=== PATIENT | male | born 1950 | race Caucasian/White ===

== ENCOUNTER → 2017-11-13 06:56 | Outpatient (CLI) | payer MEDICARE, OTHER, SELFPAY ==
--- NOTE | 2017-11-13 06:58 | CT_ITS ---
STUDY: CT CHEST WITH CONTRAST REASON FOR EXAM: Male, 67 years old. History of chronic lymphocytic leukemia. RADIATION DOSAGE (If Supplied By Facility): CTDIvol = ( 22.11 ) mGy, DLP = ( 2292.09 ) mGycm TECHNIQUE: Transaxial imaging was performed following intravenous administration of 100 ml of Isovue 300 contrast material. Multiplanar coronal and sagittal images were reformatted. Individualized dose optimization techniques were used for this CT. COMPARISON: Comparison is made with prior examination dated September 27, 2017. FINDINGS: Since prior study, there has been decrease in the left axillary adenopathy. Residual changes persist. Stable benign-appearing right axillary lymph nodes. The lungs are normal. There is no demonstrated pleural abnormality. Normal heart and pericardium. There are multiple small lymph nodes within the mediastinum, which are normal in size and morphology most compatible with reactive lymph hyperplasia. Normal hilar regions. Normal enhanced pulmonary arteries. Normal aorta arch and descending thoracic aorta. There are multi-level degenerative changes of the thoracic spine. Residual adenopathy in the visualized portion of retroperitoneal and peripancreatic area. This is better described on the CT scan of the abdomen. CT/Chest WITH Contrast IMPRESSION: Since prior study, there has been improvement in the number and size of the left axillary lymphadenopathy. Electronically Signed: Micah Caceres MD at 19:49 EST Tel [phone], Service support ,
--- NOTE | 2017-11-13 06:59 | CT_ITS ---
STUDY: CT ABDOMEN AND PELVIS WITH CONTRAST REASON FOR EXAM: Male, 67 years old. The patient has chronic lymphocytic leukemia. The patient is presently receiving chemotherapy. RADIATION DOSAGE (If Supplied By Facility): CTDIvol = ( 22.11 ) mGy, DLP = ( 2292.09 ) mGycm TECHNIQUE: Transaxial images were obtained from the dome of the diaphragm to the symphysis pubis with oral contrast. 100 ml of Isovue 300 contrast was administered. Sagittal and coronal images were reconstructed. Individualized dose optimization techniques were used for this CT. COMPARISON: Comparison is made with prior study dated September 27, 2017. FINDINGS: The visualized lung bases are unremarkable. The visualized portions of the heart are within normal limits. Normal liver. Normal gallbladder and extrahepatic biliary system. Normal spleen. The peripancreatic lymphadenopathy has improved. Residual adenopathy is seen. There is persistent soft tissue density in the root of the mesentery with a haziness within the fat although there has been a moderate degree of improvement of the masses. The previously seen masses in the midabdomen have almost completely resolved. Normal bilateral adrenal glands. Normal right kidney. Accident field mild degree of bilateral perinephric stranding. Normal visualized stomach. Normal small intestine. Normal colon. The appendix is visualized and appears normal. Normal abdominal aorta. Normal inferior vena cava. There is retroperitoneal lymphadenopathy with enlarged nodes greater than 10-15mm in the short axis. There has been moderate degree of decreased size of the retroperitoneal lymphadenopathy. Normal urinary bladder. Normal abdominal wall. The patient is status post bilateral hip replacement. CT/Abdomen/Pelvis WITH Contrast IMPRESSION: Since prior study, there has been a moderate degree of improvement of the retroperitoneal and pelvic lymphadenopathy. The previously seen masses in the mid abdomen have almost completely resolved. Residual mild lymphadenopathy is seen in the root of the mesentery with persistent haziness in the peritoneal fat. Electronically Signed: Micah Caceres MD at 19:44 EST Tel [phone], Service support ,
== END ==
PROVIDERS: Family Provider Nurse Practitioner; PCP Nurse Practitioner; Visit Provider Internal Medicine Medical Oncology
DX: C91.10 Chronic lymphocytic leukemia of B-cell type not having achieved remission (principal)
CPT/HCPCS: 71260; 74177; Q9967

== ENCOUNTER → 2018-01-28 07:27 | Outpatient (CLI) | payer MEDICARE, OTHER, SELFPAY ==
--- NOTE | 2018-01-28 08:00 | PET_ITS ---
EXAMINATION: FDG PET CT INDICATIONS: A 67-year-old male with history of chronic lymphocytic leukemia presenting for restaging examination. COMPARISON EXAMINATION: CT of the chest report dated 11/13/17, CT of the abdomen and pelvis report dated 11/13/17. INDEX LESION SIZE SUV INTERPRETATION Mediastinum, right thoracic perihilum 2.4 (max) Quantitative criteria for viable neoplasm are not fulfilled Bilateral adrenal glands 1.6 Quantitative criteria for viable neoplasm are not fulfilled TECHNIQUE: Following the intravenous administration of 14.0 mCi of F-18 deoxyglucose via the left hand, multiplanar image acquisitions of the neck, chest, abdomen and pelvis to level of mid thigh, obtained at one hour post radiopharmaceutical administration contemporaneously interpreted with the current CT of the neck, chest, abdomen and pelvis to level of mid thigh, dated 01/28/[address] of the chest report dated 11/13/17, CT of the abdomen and pelvis report dated 11/13/17 reveal: SERUM GLUCOSE LEVEL: 85 mg/dl. HEIGHT: 68 inches. WEIGHT: 220 lbs. FINDINGS: 1. There is focal increased glucose concentration observed in the subcarinal mediastinum and right thoracic perihilum generating a calculated maximum standard uptake value of 2.4. Quantitative criteria for centrally located thoracic-viable neoplasm are not fulfilled. 2. Mild enhanced glucose concentration is observed in the bilateral upper abdomen contiguous to the left-right adrenal glands generating a calculated maximum standard uptake value of 1.6. Quantitative criteria for viable adrenal gland neoplasm are not fulfilled. 3. Normal physiologic distribution of the radiopharmaceutical is apparent in the hepatic (3.1) and splenic parenchyma, both renal units, bladder and visualized intestinal tract. There is uniform distribution of the radiopharmaceutical concentration compared on the cerebellar hemispheres and cerebral cortex. Diffuse intestinal tract activity is noted throughout all four quadrants of the abdominal-pelvic retroperitoneum, mesentery consistent with normal physiologic distribution of the radiopharmaceutical. Pertinent CT findings are as follows. CHEST: There are no parenchymal densities-nodules demonstrated in the right-left hemithorax manifesting quantitatively significant increased glucose metabolism. Atherosclerotic calcification is defined in the thoracic aorta without evidence of dilatation, aneurysm formation. Coronary arterial calcification is observed. Bilateral subcentimeter axillary soft tissue densities with fatty hilus formation are non-glucose avid. Scattered mediastinal soft tissue demonstrates no evidence of facilitated glucose metabolism ABDOMEN AND PELVIS: Atherosclerotic calcification is defined in the abdominal aorta without evidence of dilatation, aneurysm formation. Pelvic arterial calcification is observed. Scattered soft tissue densities noted in the abdominal mesenteric fat demonstrate no evidence of facilitated glucose metabolism. Fat-containing bilateral inguinal hernias are noted. Right-left inguinal soft tissue densities are ametabolic. Beam-hardening artifact attributed to the right-left hip prostheses precludes accurate assessment of the lower pelvic CT acquisition. SKELETAL: Degenerative changes defined in the cervical, thoracic and lumbar spine demonstrate no evidence for glucose hypermetabolism. Bilateral hip arthroplasties are defined. PET/PET/CT Tumor Base -Thigh Subs IMPRESSION: 1. NEGATIVE EXAMINATION. There is no definitive quantitative scintigraphic evidence of recurrent-viable neoplasm. 2. Increased glucose concentration identified in the mediastinum and right thoracic perihilum does not fulfill quantitative criteria for viable neoplasm. (John et al, Journal of Clinical Oncology 16:2142, 1998). 3. Facilitated glucose concentration observed in the bilateral adrenal glands does not fulfill quantitative criteria for viable neoplasm. (Chata and Avier, Journal of Nuclear Medicine 42:151 P 2002. Carrie, Journal of Nuclear Medicine 45:1340, 2004). Electronic Signature Kaden Wade D.O. Electronically Signed: Kaden Wade DO at 22:57 EDT Tel , Service support ,
== END ==
PROVIDERS: Visit Provider Internal Medicine Medical Oncology
DX: C91.10 Chronic lymphocytic leukemia of B-cell type not having achieved remission (principal)
CPT/HCPCS: 78815; A9552; A4216

== ENCOUNTER → 2018-04-12 16:33 | Outpatient (CLI) | payer MEDICARE, OTHER, SELFPAY ==
--- NOTE | 2018-04-12 09:00 | COLBX_PTH ---
PATIENT: NAKUL WHATLEY LOC: SP U#:[id number] AGE/SX: 75/M ROOM: RE04/12/[address]: Dr. Gagan Najera MD : 1950 BED: DIS: SPEC #: [id number] RECD: 04/12/18 15:36 STATUS: CAMPOS WOODY #: [id number] KAMI: 04/12/18 09:[address]: Gagan Najera DEPT: SURGICAL PATHOLOGY RECD BY: Courtney Mccormick ENTERED: 04/15/18 11:27 SP TYPE: COLON BX OT DR: CARLA Tissues: Ileum, NOS Procedures: Surgery Specimen Level IV HEADER OPERATION: Colonoscopy PRE-OP DIAGNOSIS: Screening / polyp TISSUE SUBMITTED: Polyp ? ileocecal valve MICROSCOPIC DIAGNOSIS Polyp ileocecal valve, biopsy: Fragments of hyperplastic polyp. SJ:kristy 04/16/18 MICROSCOPIC DESCRIPTION Slides are reviewed. GROSS DESCRIPTION Received in fixative is one container labeled with the patient's name and designated polyp ileocecal valve. The specimen consists of multiple irregular fragments of light cardoso soft tissue that in aggregate measure 0.8 x 0.5 x 0.1 cm. The specimen is totally submitted in one cassette. / SJ:kristy 04/15/18 TC:1 CPT: 86520
== END ==
PROVIDERS: Visit Provider Internal Medicine Gastroenterology
DX: Z13.9 Encounter for screening, unspecified (principal); K63.5 Polyp of colon
CPT/HCPCS: 88305

== ENCOUNTER → 2019-08-06 07:48 | Outpatient (CLI) | payer MEDICARE, OTHER, SELFPAY ==
[2019-07-23 11:07] VITALS: BMI 31.9
--- NOTE | 2019-08-06 07:50 | ECHOD_ITS ---
Reason For Study: Arrhythmia Procedure This was a 2D Doppler, Color Flow transthoracic echocardiogram. Exam performed in department. Left Ventricle Normal LV size. Left ventricular systolic function is normal. The estimated ejection fraction is 60 %. Stage 1 diastolic dysfunction. No regional wall motion abnormalities noted. Right Ventricle Normal RV size. Normal systolic function. Atria Normal left atrium. Normal right atrium. Mitral Valve Normal mitral valve. Tricuspid Valve Normal tricuspid valve. Aortic Valve Trisinus/trileaflet aortic valve. Trivial aortic valve insufficiency. Pulmonic Valve Normal pulmonic valve. Great Vessels Normal aortic root. The pulmonary artery is normal size. Normal inferior vena cava. Pericardium/Pleural No pericardial effusion. MMode/2D Measurements & Calculations LVIDd: 5.2 cm IVSd: 1.1 cm Ao root diam: 3.6 cm LVIDs: 2.7 cm LVPWd: 0.84 cm RVDd: 3.3 cm FS: 46.9 % LAV(MOD-bp): 47.2 ml EDV(MOD-sp4): 95.7 ml SV(MOD-sp4): 68.1 ml LAV(MOD-bp) Indexed: 22.7 ml/m2 ESV(MOD-sp4): 27.6 ml LAV(MOD-sp2): 51.0 ml EF(MOD-sp4): 71.1 % LAV(MOD-sp4): 43.1 ml LA dimension(2D): 3.3 cm LA A4 area: 16.7 cm2 RA A4 area: 13.3 cm2 Doppler Measurements & Calculations MV E max kavon: 70.7 cm/sec Lat Peak E' Kavon: 7.7 cm/sec Med Peak E' Kavon: 5.9 cm/sec MV A max kavon: 91.2 cm/sec E/E' lat: 9.2 E/E' med: 11.9 MV E/A: 0.78 Ao V2 max: 119.1 cm/sec LV V1 max: 114.3 cm/sec PA V2 max: 88.2 cm/sec Ao max P.7 mmHg LV V1 max P.2 mmHg Interpretation Summary Normal LV size. Left ventricular systolic function is normal. The estimated ejection fraction is 60 %. Stage 1 diastolic dysfunction. Structurally normal valves. Ordering Physician: Clyde Sky Referring Physician: Katie Simon Performed By: Ashli Mckeon RDCS
== END ==
PROVIDERS: Family Provider Nurse Practitioner; PCP Nurse Practitioner; Referring Provider Internal Medicine Cardiovascular Disease; Visit Provider Internal Medicine Cardiovascular Disease
DX: R55 Syncope and collapse (principal)
CPT/HCPCS: 93225; 93226; 93306

== ENCOUNTER → 2019-09-01 06:52 | Outpatient (CLI) | payer MEDICARE, OTHER, SELFPAY ==
[2018-12-10 08:28] VITALS: BMI 30.6
[2019-07-23 11:07] VITALS: BMI 31.9
--- NOTE | 2019-09-01 06:54 | CT_ITS ---
ACR Level 3 findings have been noted. An addendum which confirms receipt of the report will follow. STUDY: CT ABDOMEN CHEST AND PELVIS WITH CONTRAST REASON FOR EXAM: Male, 69 years old. Follow-up CLL. No new pain or problems. TECHNIQUE: Transaxial images were obtained from the thoracic inlet to the symphysis pubis without oral contrast. IV 100mL Isovue-370 was administered. Sagittal and coronal images were reconstructed. Individualized dose optimization techniques were used for this CT. COMPARISON: PET scan 01/28/2018. FINDINGS: CHEST: Mediastinum, lymph nodes: Mild increase in size and number of mediastinal lymph nodes, with mildly prominent paratracheal, AP window, and subcarinal lymph nodes slightly increased compared to the previous study. Mild increase in size and number of bilateral axillary lymph nodes. Reference subcarinal lymph node series 2 image 51 3.7 x 1.0 cm TRV X AP, increased from 1.8 x 0.9 cm. Heart and great vessels: Heart size normal. No dissection or aneurysm of the thoracic aorta. Coronary artery atherosclerosis. Lungs, pleura: No pneumonia, edema, or acute abnormality in the lungs. No pleural effusion. No pneumothorax. Osseous: No fracture or acute osseous abnormality. Degenerative changes right shoulder. Chest wall: No concerning findings. Abdomen/pelvis: Retroperitoneal and peritoneal spaces, lymph nodes: Definite interval increase in superior mesenteric and para-aortic/retroperitoneal lymphadenopathy. The mesenteric lymph nodes have increased in size and number. Reference a lymph node to the left of midline adjacent to the SMA at the level of the L2-3 disc (series 3 image 51) 2.5 x 2.5 cm TRV X AP today increased from 1.2 x 1.2 cm. Reference retroperitoneal lymph node a conglomerate mass to the left of the abdominal aorta at the level of L3, measured on series 3 image 68, 4.6 x 4.3 cm TRV X AP increased from 2.4 x 1.6 cm on the previous study. Liver: No concerning lesions. Gallbladder and biliary tree: No visible gallstones. No pericholecystic inflammation. No biliary ductal dilation. Pancreas: No pancreatic lesions or inflammation. Spleen: Normal size, no splenic lesions. Adrenal glands: No concerning masses. Kidneys and ureters: No hydronephrosis or renal stones. No concerning masses. No ureteral dilation. Bowel: Normal appendix. No obstruction or inflammation of the bowel. Urinary bladder: Unremarkable as visualized. Partially obscured by streak artifact from the bilateral hip arthroplasties. Reproductive:Normal size prostate. Vascular: No abdominal aortic aneurysm. Patent portal and mesenteric veins. Minimal atherosclerosis. Osseous: No acute osseous abnormality. Prominent facet degeneration lower lumbar spine. Bilateral total hip arthroplasties. Abdominal and pelvic wall: No concerning findings. CT/Abdomen/Pelvis W IV Cont ONLY IMPRESSION: Moderate to severe worsening of superior mesenteric and retroperitoneal lymphadenopathy. Slight worsening of mediastinal and bilateral axillary adenopathy. Electronically Signed: Jose Daigle, at 17:31 EST Tel , Service support ,
[2019-09-01 07:05] LABS: CREATININE FINGERSTICK 1.1 mg/dL (0.70-1.30); EGFR FINGERSTICK > 60.0000 mL/min (>60)
== END ==
PROVIDERS: Family Provider Nurse Practitioner; PCP Nurse Practitioner; Referring Provider Internal Medicine Medical Oncology; Visit Provider Internal Medicine Medical Oncology
DX: C91.10 Chronic lymphocytic leukemia of B-cell type not having achieved remission (principal)
CPT/HCPCS: 71260; 74177; Q9967

== ENCOUNTER → 2019-09-25 09:26 | Outpatient (CLI) | payer MEDICARE, OTHER, SELFPAY ==
[2019-09-04 08:24] VITALS: BMI 33.0
--- NOTE | 2019-09-25 09:31 | RAD_ITS ---
HISTORY: COUGH ADDITIONAL HISTORY: None provided. COMPARISON: 04/27/2016 TECHNIQUE: Frontal and lateral chest radiographs. Number of images including paperwork: 2 FINDINGS: LUNGS AND PLEURA: Left lower lobe consolidation with partial obscuration of the left hemidiaphragm. No sizable pleural effusion. Right hemidiaphragm elevation appears similar. CARDIAC SILHOUETTE: Stable. MEDIASTINUM AND FABIAN: Stable. UPPER ABDOMEN: Unremarkable. SKELETON AND SOFT TISSUES: No acute findings. Degenerative changes. OTHER DEVICES AND HARDWARE: Bilateral shoulder prostheses partially visualized. RAD/Chest PA and Lateral IMPRESSION: Left lower lobe infiltrate concerning for pneumonia. at 2213 Reported and signed by: Shelly Hedrick MD Electronically Signed: Shelly Hedrick MD at 22:12 EST Tel , Service support ,
[2019-09-25 10:00] LABS: Hematocrit 33.2 % (40-54); Hemoglobin 10.4 g/dL (13.0-16.5); Mean Corp Hgb Conc 31.3 g/dL (32-36); Mean Corpuscular Hgb 29.1 pg (27.0-32.0); Mean Corpuscular Volume 92.7 fL (80-94); Mean Platelet Vol. 8.9 fl (6.2-12.0); Platelet Count 314 K/mm3 (150-450); RBC Distribution Width CV 13.7 % (11.6-14.6); RBC Distribution Width SD 46.7 fl (35.1-43.9); Red Blood Count 3.58 M/mm3 (4.6-6.2); White Blood Count 15.4 K/mm3 (4.4-11.0)
[2019-09-25 10:17] LABS: ALB/GLOB Ratio 1.2 RATIO (0.9-2.4); AST(SGOT) 46 U/L (15-37); Alanine Aminotransfer ALT/SGPT 83 U/L (16-61); Albumin, Serum 3.2 g/dL (3.2-5.0); Alkaline Phosphatase 235 U/L (45-117); Anion Gap 5 (5-15); BUN 23 mg/dL (7-18); Calcium,Total 8.7 mg/dL (8.5-10.1); Chloride 109 mmol/L (98-107); Creatinine, Serum 0.92 mg/dL (0.70-1.30); EST Glomerular Filtration Rate 87 mL/min (>60); Est Glom Filt Rate - Afr Amer 106 mL/min (>60); Globulin 2.7 g/dL (2.2-4.2); Glucose 117 mg/dL (74-106); Potassium 4.6 mmol/L (3.5-5.1); Protein, Total 5.9 g/dL (6.4-8.2); Sodium Level 142 mmol/L (136-145)
[2019-09-25 10:22] LABS: D-Dimer Quantitative (DVT/PE) 3.17 FEU/ug/m (0.27-0.49)
== END ==
PROVIDERS: Referring Provider Nurse Practitioner Gerontology; Visit Provider Nurse Practitioner Gerontology
DX: R05 Cough (principal); R50.9 Fever, unspecified
CPT/HCPCS: 71046; 80053; 85027; 85379

== ENCOUNTER → 2019-09-25 10:52 | Outpatient (CLI) | payer MEDICARE, OTHER, SELFPAY ==
[2019-09-04 08:24] VITALS: BMI 33.0
--- NOTE | 2019-09-25 10:59 | CT_ITS ---
STUDY: CTA CHEST REASON FOR EXAM: Male, 69 years old. ELEV DDIMER RADIATION DOSAGE (If Supplied By Facility): CTDIvol = ( 15.00 ) mGy, DLP = ( 526.85 ) mGycm TECHNIQUE: The examination was performed with the intravenous administration of Isovue 370 100. Post-processing of the angiographic images was performed, with multiplanar reformation and 3D reconstruction. Individualized dose optimization techniques were used for this CT. COMPARISON: 09/01/2019 FINDINGS: Normal enhancement of the main pulmonary artery and right and left pulmonary arteries. Normal enhancement of the bilateral peripheral pulmonary arteries. There is no demonstrated pulmonary embolism. Normal thoracic aorta and visualized great vessels. There is no demonstrated aortic dissection. Normal heart and pericardium. Normal mediastinum. Normal hilar regions. Normal visualized trachea and bronchi. The lungs are well expanded. Dense alveolar density in the lower left lung consistent with left lower lobe pneumonia. Normal pleura. Normal chest wall structures. Normal osseous structures. Prominent retroperitoneal mesenteric lymph nodes worrisome for metastatic disease or lymphoma. CT/CTA Chest W/WO Contrast IMPRESSION: 1. Normal CTA chest examination, without a demonstrated pulmonary embolism or arterial dissection. 2. Left lower lobe pneumonia. 3. Retroperitoneal mesenteric lymph nodes worrisome for metastatic disease or lymphoma. Electronically Signed: Kaden Souza MD at 12:04 EST Tel , Service support ,
== END ==
PROVIDERS: Family Provider Nurse Practitioner; PCP Nurse Practitioner; Referring Provider Nurse Practitioner Gerontology; Visit Provider Nurse Practitioner Gerontology
DX: R79.89 Other specified abnormal findings of blood chemistry (principal); R05 Cough; R50.9 Fever, unspecified
CPT/HCPCS: 71046; 71275; 80053; 85027; 85379; Q9967

== ENCOUNTER → 2019-11-13 09:25 | Outpatient (CLI) | payer MEDICARE, OTHER, SELFPAY ==
[2019-10-02 11:15] VITALS: BMI 31.9
--- NOTE | 2019-11-13 09:29 | RAD_ITS ---
HISTORY: COUGH EXAM: XR Chest 2 Views: COMPARISON: Most recent comparison chest x-rays September 25, 2019. A CT scan of the chest is also available from that same day. FINDINGS: # of images incl. paperwork: 2 Bilateral shoulder arthroplasties are unchanged. Minimal left lower lobe airspace disease persists. The severity of this disease is less than that of the previous study The right lung is clear Heart is not enlarged. No acute osseous pathology perceived. Pulmonary vascularity is distinct. No effusions. RAD/Chest PA and Lateral IMPRESSION: Less left lower lobe airspace disease, possibly resolving pneumonia.. at 0602 Reported and signed by: Isaac Tolentino MD Electronically Signed: Isaac Tolentino MD at 6:00 EST Tel , Service support ,
== END ==
PROVIDERS: PCP Nurse Practitioner; Referring Provider Nurse Practitioner Gerontology; Visit Provider Nurse Practitioner Gerontology
DX: R05 Cough (principal)
CPT/HCPCS: 71046

== ENCOUNTER → 2020-02-26 | Outpatient (CLI) | payer MEDICARE, OTHER, SELFPAY ==
[2020-02-11 09:00] VITALS: BMI 33.4
== END | disposition home or self-care (01) ==
LOC: LABSPEC 15:54
PROVIDERS: PCP Nurse Practitioner; Visit Provider Dermatology
DX: L03.012 Cellulitis of left finger (principal); L60.0 Ingrowing nail
CPT/HCPCS: 87070; 87077; 87186; 87205

== ENCOUNTER 2020-02-28 13:34 | Emergency (ER) | payer MEDICARE, OTHER, SELFPAY ==
[2020-02-11 09:00] VITALS: BMI 33.4
[2020-02-28 13:35] VITALS: BP 154/88; PULSE 77; RESP 16; TEMP 36.3; O2SAT 96; BMI 32.8
[2020-02-28 13:50] VITALS: BP 146/84; PULSE 79; RESP 14; O2SAT 97
--- NOTE | 2020-02-28 13:53 | ED.VIS.UPPEX ---
History of Present Illness Chief Complaint: Cellulitis Informant: Patient Occurred: Days - 3 days Mechanism/Context: Puncture Wound Onset: Days - 3 days Context: Gradual Onset Timing: Continuous Quality of Pain: Throbbing Location: left middle finger Current Severity: Mild Maximum Severity: Mild Worsened by: nothing Relieved by: nothing Associated Symptoms: Negative for: Parasthesia, Weakness, Loss of Funtion Narrative: 69-year-old male with a history of CLL presents for wound check. He had a paronychia drained by his circular saw operator 3 days ago on his left middle finger. He states it seems more red to him and he presents for evaluation. No fevers or drainage. He is not having any pain. Denies numbness or tingling. He is right-hand dominant. He is not on blood thinners. He is currently on Keflex. He has been compliant. Tetanus Immunization: Unknown Prior similar symptoms: No Recent Illness/Hospitalization: No Past Medical History - Allergies and Home Meds Allergies/Adverse Reactions: Allergies naproxen Adverse Reaction (Intermediate, Verified 02/28/20 13:35) Upset Stomach Primary Care Physician: Vinod Lyman MD [STAFF PHYSICIAN] - 03/01/20 11:45 am Katie Simon NP-C [Primary Care Provider] - Prior records reviewed: Yes Past Medical History: - - CLL Surgical History: - - bilateral hip replacements, shoulder replacement Smoking Status: Never smoker Review of Systems All systems negative except as indicated General: Denies: Chills, Fever, Sweats Eyes: Denies: Visual changes - bilaterally, Diplopia ENT: Denies: Rhinorrhea, Sore throat Cardiovascular: Denies: Chest pain, Palpitations Respiratory: Denies: Dyspnea, Cough, Dyspnea on exertion Gastrointestinal: Denies: Abdominal pain, Nausea, Vomiting, Diarrhea, Melena, Hematochezia Genitourinary: Denies: Dysuria, Hematuria, Frequency Musculoskeletal: Denies: Back pain, Extremity Pain Skin: Reports: Wounds. Denies: Rash, Abscess, Abrasions Neurological: Denies: Headache, Weakness, Numbness Physical Exam Vital Signs/Narrative: Vital Signs Temp Pulse Resp BP Pulse Ox 02/28/20 13:50 79 14 146/84 H 97 02/28/20 13:35 97.3 F L 77 16 154/88 H 96 Inital Vital Signs reviewed: Yes General: Well nourished, Well developed Head: Normocephalic, Atraumatic Eyes: Perrl, EOMI ENT: No Trauma, Moist Mucous Membranes Neck: Nontender, Full ROM Cardiovascular: Regular rate, Regular rhythm, No murmurs Respiratory: No distress, CTA bilaterally, Chest nontender Abdomen: Soft, Nontender, Nondistended, Normal bowel sounds Back: Nontender Skin: Normal color, No rash Neurological: Alert, Oriented x3, Cranial nerves II-XII grossly intact, Normal Strength, Normal Sensation Psychological: Normal affect, Normal Mood Diagnostic/Tx/Re-eval Impressions Hand X-Ray 02/28/20 14:00 IMPRESSION: Possible foreign body on the dorsal aspect of the distal phalanx of the third finger. Electronically Signed: Raymond Fermin MD at 14:35 EDT Tel , Service support , 02/28/20 14:00 Xray Hand [Hand Min 3 Views] [RAD] Stat - Medical Decision Making Patient's exam shows some mild cellulitis surrounding his left middle finger nail but there is no lymphatic streaking or signs of flexor tenosynovitis. X-ray was obtained. Showed no bony involvement but possible foreign body. Repeat evaluation patient has no signs on exam of foreign body. We spoke with his circular saw operator Dr Lyman who is been managing this wound who asked us to add linezolid and Diflucan to his Keflex and he will see him in the office on Sunday. ED Disposition - Plan for ED Patient: Disposition: Home or Assisted Living Diagnosis: CLL (chronic lymphoid leukemia) with failed remission, Cellulitis of finger of left hand Instructions: ED FINGERNAIL INFECTION Prescriptions: Fluconazole [Diflucan] 400 mg PO DAILY #7 tab Transmission Status: Sent to [id number] Linezolid [Zyvox] 600 mg PO Q12H #14 tab Transmission Status: Sent to [id number] Referrals: Vinod Lyman MD [STAFF PHYSICIAN] - 03/01/20 11:45 am Katie Simon NP-C [Primary Care Provider] -
--- NOTE | 2020-02-28 14:00 | RAD_ITS ---
STUDY: X-RAY - LEFT HAND REASON FOR EXAM: Male, 69 years old. Pulled A Piece Of Nail Off Of His Left Middle Finger 1 1/2 Weeks Ago And Now Swollen, Red And Painful. TECHNIQUE: 3 view(s) of the hand. COMPARISON: None. FINDINGS: Normal radiocarpal articulation. Normal distal radioulnar joint. Normal visualized carpal bones. Normal carpal articulations Normal carpometacarpal articulation of the thumb. Normal second through fifth carpometacarpal joints. Normal metacarpi. Normal metacarpophalangeal joint of the thumb. Normal interphalangeal joint of the thumb. Normal proximal and distal phalanges of the thumb. Normal metacarpophalangeal joints of the second through fifth fingers. Normal proximal and distal interphalangeal joints of the second through fifth fingers. Normal phalanges of the second through fifth fingers. There is a small density in the region of the nailbed on the dorsal aspect of the distal phalanx of the third finger which could represent foreign body. RAD/Hand Min 3 Views IMPRESSION: Possible foreign body on the dorsal aspect of the distal phalanx of the third finger. Electronically Signed: Raymond Fermin MD at 14:35 EDT Tel , Service support ,
--- NOTE | 2020-02-28 14:55 | ED.DCSUM_ITS ---
- ER Visit Summary Date of Service: 02/28/20 Chief Complaint: [Redness and swelling to left middle finger] History of Present Illness: The patient is a 69 M [into the emergency department with redness and swelling to left middle finger that has had for about 3 weeks. Patient states that he initially pulled a hangnail from the edge of the nail that triggered all this issue. Patient's been treated for paronychia with his international marketing specialist initially was on doxycycline and then recently switched over to Keflex. Patient has not responded to this therapy. Patient had a culture sent recently of the drainage which grew out alphahemolytic strep as well as coag negative staph. There is concern about enterococcus also. Patient denies any fevers. Patient was seen by Dr. Lyman the international marketing specialist and also had partial resection of the nail. Patient has history of CLL and receives oral chemotherapy for that.] Physical Examination: [HEENT-PERRLA, EOMI. Cranial nerves II through XII grossly intact. TMs clear. Mucous membranes moist. No adenopathy. Cardiovascular-regular rate and rhythm without murmur or ectopy Lungs-clear to auscultation, chest wall stable without crepitus or subcu emphysema Abdomen-normoactive bowel sounds, soft, nontender, no rebound or rigidity, no peritoneal signs. Extremities-intact ?4, normal range of motion, normal pulses, atraumatic. Left middle finger-patient has have erythema around the lateral edge of the nail and at the base of the nail. Small amount of yellowish type drainage expressed from the nail edge when compressed. No discrete abscess noted. Neurovascular intact distally. There is some discoloration that is brownish to the skin and apparently the international marketing specialist used some silver nitrate to the area.] Test Results: [X-Rays of the left hand obtained showed no evidence of osteomyelitis however there is question of possible foreign body noted to the lateral edge of the nail.] Emergency Department Course and Treatment: [Patient was given Diflucan in the emergency department as well as Linozolid. I discussed case with patient's international marketing specialist Dr. Lyman and he made the recommendations on antibiotics. Patient will be seen in the office in 2 days for a repeat evaluation.] Treatment Plan: [Patient will be treated with Keflex,Linozolid, and Diflucan. Patient will follow-up with his international marketing specialist in 2 days. ] Disposition: [Discharged home in stable condition] Impression: [Paronychia] This note was generated with [employer] dictation software. It may contain incorrect words, spelling, and punctuation that were not noted in review of the chart prior to signing ED Disposition - Plan for ED Patient: Referrals: Katie Simon, GENERAL EDUCATION INSTRUCTOR-C [Primary Care Provider] -
--- NOTE | 2020-02-28 15:00 | ED.DEP ---
ED Disposition - Plan for ED Patient: Instructions: ED FINGERNAIL INFECTION Prescriptions: Fluconazole [Diflucan] 400 mg PO DAILY #7 tab Transmission Status: Pending to [id number] Linezolid [Zyvox] 600 mg PO Q12H #14 tab Transmission Status: Pending to [id number] Referrals: Katie Simon NP-C [Primary Care Provider] - Vinod Lyman MD [STAFF PHYSICIAN] - 03/01/20 11:45 am
[2020-02-28 15:24] VITALS: BP 127/70; PULSE 69; RESP 16; O2SAT 97
[2020-02-28] MEDS: Fluconazole 100 MG Tablet 400 MG PO (15:26)
[2020-02-28] MEDS: Linezolid 600 MG Tablet PO (15:26)
== END 2020-02-28 15:31 | disposition home or self-care (01) ==
PROVIDERS: Emergency Provider Physician Assistant Medical; PCP Nurse Practitioner
DX: C91.10 Chronic lymphocytic leukemia of B-cell type not having achieved remission (principal); L03.012 Cellulitis of left finger
CPT/HCPCS: 73130; 99283

== ENCOUNTER → 2020-03-30 | Outpatient (CLI) | payer MEDICARE, OTHER, SELFPAY ==
[2020-03-10 09:08] VITALS: BMI 33.7
== END | disposition home or self-care (01) ==
LOC: LABSPEC 12:52
PROVIDERS: PCP Nurse Practitioner; Referring Provider Dermatology; Visit Provider Dermatology
DX: L03.012 Cellulitis of left finger (principal); L60.0 Ingrowing nail; L98.0 Pyogenic granuloma; L53.8 Other specified erythematous conditions; R20.8 Other disturbances of skin sensation
CPT/HCPCS: 87070; 87077; 87186; 87205

== ENCOUNTER → 2020-04-05 07:45 | Outpatient (CLI) | payer MEDICARE, OTHER, SELFPAY ==
[2020-03-10 09:08] VITALS: BMI 33.7
--- NOTE | 2020-04-05 07:46 | CT_ITS ---
STUDY: CT ABDOMEN AND PELVIS WITH CONTRAST REASON FOR EXAM: Male, 69 years old. ABDOMINAL ADENOPATHY,CLL RADIATION DOSAGE (If Supplied By Facility): CTDIvol = ( 20.63 ) mGy, DLP = ( 1607.62 ) mGycm TECHNIQUE: Transaxial images were obtained from the dome of the diaphragm to the symphysis pubis with oral contrast. Oral and amp;amp; IV Readi-CAT and amp;amp; 100mL Isovue-300 was administered. Sagittal and coronal images were reconstructed. Individualized dose optimization techniques were used for this CT. COMPARISON: Comparison is made with prior examination dated September 01, 2019. FINDINGS: Stable minimal increased linear markings at the lung bases. Coronary artery calcification. There is decreased attenuation of the liver consistent with steatosis. Normal gallbladder and extrahepatic biliary system. Normal spleen. Normal pancreas. The previously seen lymph nodes in the mesenteric fat at the root of the mesentery as well as the peripancreatic lymphadenopathy at all decreased in size. Normal bilateral adrenal glands. Normal right kidney. Normal left kidney. Normal visualized stomach. Normal small intestine. Normal colon. The appendix is visualized and appears normal. Normal abdominal aorta. Normal inferior vena cava. There is retroperitoneal lymphadenopathy with enlarged nodes greater than 10-15mm in the short axis. There has been improvement as compared to prior study. Normal urinary bladder. Normal abdominal wall. Status post bilateral hip replacements. Stable mild degenerative changes of the lumbar spine. CT/Abdomen/Pelvis WITH Contrast IMPRESSION: Improvement in the retroperitoneal and mesenteric lymphadenopathy as compared to the prior study. Electronically Signed: Micah Caceres, at 11:11 EDT , Service support ,
== END ==
PROVIDERS: PCP Nurse Practitioner; Referring Provider Internal Medicine Medical Oncology; Visit Provider Internal Medicine Medical Oncology
DX: C91.10 Chronic lymphocytic leukemia of B-cell type not having achieved remission (principal); R59.0 Localized enlarged lymph nodes
CPT/HCPCS: 74177; Q9967

== ENCOUNTER → 2020-06-28 06:51 | Outpatient (CLI) | payer MEDICARE, OTHER, SELFPAY ==
[2020-06-02 08:22] VITALS: BMI 34.4
--- NOTE | 2020-06-28 06:51 | CT_ITS ---
STUDY: CT ABDOMEN AND PELVIS WITH CONTRAST REASON FOR EXAM: Male, 70 years old. CLL CHECK UP, HAD CHEMO 2017, NOW ON ORAL TREATMENT, SURG-pyloric stenosis as an , cyst removed from anterior chest, left shoulder replacement, bilateral hip replacements RADIATION DOSAGE (If Supplied By Facility): CTDIvol = ( 20.14 ) mGy, DLP = ( 1725.60 ) mGycm TECHNIQUE: Transaxial images were obtained from the dome of the diaphragm to the symphysis pubis with oral contrast. 100 mL ISOVUE-300 was administered. Sagittal and coronal images were reconstructed. Individualized dose optimization techniques were used for this CT. COMPARISON: 04/05/2020 FINDINGS: The visualized lung bases are unremarkable. The visualized portions of the heart are within normal limits. Normal liver. Normal gallbladder and extrahepatic biliary system. Normal spleen. Normal pancreas. Normal bilateral adrenal glands. Normal right kidney. Normal left kidney. Normal visualized stomach. Normal small intestine. Normal colon. The appendix is visualized and appears normal. Normal abdominal aorta. Normal inferior vena cava. Retroperitoneal mesenteric adenopathy has decreased in size since the prior study. For instance, the largest single lymph node in the retroperitoneum on image 644 measures 1.6 x 2.4 cm (previously measured 2.0 x 3.1 cm). Persistent induration/stranding of the mesenteric root although decreased in conspicuity since the prior study. Normal urinary bladder. Normal abdominal wall. Bilateral hip replacements cause moderate spray artifact. CT/Abdomen/Pelvis WITH Contrast IMPRESSION: Since 04/05/2020, favorable change. Decreased retroperitoneal mesenteric adenopathy. Electronically Signed: Brody Keys MD (Brooks) at 9:23 EDT , Service support ,
== END ==
PROVIDERS: PCP Nurse Practitioner; Referring Provider Internal Medicine Medical Oncology; Visit Provider Internal Medicine Medical Oncology
DX: C91.91 Lymphoid leukemia, unspecified, in remission (principal)
CPT/HCPCS: 74177; Q9967

== ENCOUNTER → 2020-08-18 | Outpatient (CLI) | payer MEDICARE, OTHER, SELFPAY ==
[2020-07-28 08:26] VITALS: BMI 34.0
== END | disposition home or self-care (01) ==
LOC: LABSPEC 10:43
PROVIDERS: Referring Provider Dermatology; Visit Provider Dermatology
DX: L98.0 Pyogenic granuloma (principal); M71.331 Other bursal cyst, right wrist
CPT/HCPCS: 87070; 87077; 87186; 87205

== ENCOUNTER → 2020-08-27 | Outpatient (CLI) | payer MEDICARE, OTHER, SELFPAY ==
[2020-08-25 08:33] VITALS: BMI 34.9
== END | disposition home or self-care (01) ==
LOC: LABSPEC 10:54
PROVIDERS: Referring Provider Dermatology; Visit Provider Dermatology
DX: L98.0 Pyogenic granuloma (principal); L60.0 Ingrowing nail
CPT/HCPCS: 87070; 87205

== ENCOUNTER → 2020-11-10 06:49 | Outpatient (CLI) | payer MEDICARE, OTHER, SELFPAY ==
[2020-10-20 08:29] VITALS: BMI 35.6
--- NOTE | 2020-11-10 06:52 | CT_ITS ---
STUDY: CT CHEST WITH CONTRAST REASON FOR EXAM: Male, 70 years old. Restaging leukemia 7 YEARS AGO WITH CHEMOTHERAPY RADIATION DOSAGE (If Supplied By Facility): CTDIvol = ( 20.14 ) mGy, DLP = ( 1725.60 ) mGycm TECHNIQUE: Transaxial imaging was performed following intravenous administration of IV 100mL Isovue-300. Multiplanar coronal and sagittal images were reformatted. Individualized dose optimization techniques were used for this CT. COMPARISON: Comparison is made with prior study dated 09/01/2019. FINDINGS: The bilateral axillary lymph nodes have decreased in size as compared to prior study. The largest lymph node measures 9 mm and is in the right axillary region. Stable minimal increased markings in the lower lobes suggestive of scarring. There is no demonstrated pleural abnormality. Normal heart and pericardium. There are multiple small lymph nodes within the mediastinum, which are normal in size and morphology most compatible with reactive lymph hyperplasia. Normal hilar regions. Normal enhanced pulmonary arteries. Normal aorta arch and descending thoracic aorta. There are multi-level degenerative changes of the thoracic spine. Mild residual increased markings in the root of the mesentery. The previously seen adenopathy has markedly improved. CT/Chest WITH Contrast IMPRESSION: Interval decrease in size of the bilateral axillary lymph nodes as well as the mediastinal lymph nodes. Stable mild increased markings at the lung bases suggestive of scarring. Electronically Signed: Micah Caceres MD at 8:35 EST , Service support ,
--- NOTE | 2020-11-10 06:52 | CT_ITS ---
STUDY: CT ABDOMEN AND PELVIS WITH CONTRAST REASON FOR EXAM: Male, 70 years old. LEUKEMIA F/U WITH CHEMO 7 YEARS AGO RADIATION DOSAGE (If Supplied By Facility): CTDIvol = ( 20.14 ) mGy, DLP = ( 1725.60 ) mGycm TECHNIQUE: Transaxial images were obtained from the dome of the diaphragm to the symphysis pubis without oral contrast. IV 100mL Isovue-300 was administered. Sagittal and coronal images were reconstructed. Individualized dose optimization techniques were used for this CT. COMPARISON: Comparison is made with prior study dated 06/28/2020. FINDINGS: Minimal increased interstitial markings at the lung bases suggest some mild basilar scarring. Coronary artery calcification. Normal liver. Normal gallbladder and extrahepatic biliary system. Normal spleen. Normal pancreas. Normal bilateral adrenal glands. Normal right kidney. Normal left kidney. There is evidence of increased markings in the mesenteric fat at the root of the mesentery. Once again, there are multiple rounded nodular densities within the root of the mesenteric fat in keeping with adenopathy. These have decreased slightly in size as compared to prior study. Normal visualized stomach. Normal small intestine. Normal colon. The appendix is visualized and appears normal. Normal abdominal aorta. Normal inferior vena cava. There is retroperitoneal lymphadenopathy with enlarged nodes greater than 10-15mm in the short axis. These have decreased in size as compared to prior study. Normal urinary bladder. Normal abdominal wall. There are diffuse degenerative changes of the visualized lumbar spine. There is evidence of bilateral total hip replacements. CT/Abdomen/Pelvis W IV Cont ONLY IMPRESSION: Slight decrease in the retroperitoneal and mesenteric lymphadenopathy as compared to prior study. Electronically Signed: Micah Caceres MD at 8:38 EST , Service support ,
== END ==
PROVIDERS: PCP Nurse Practitioner; Referring Provider Internal Medicine Medical Oncology; Visit Provider Internal Medicine Medical Oncology
DX: C91.10 Chronic lymphocytic leukemia of B-cell type not having achieved remission (principal)
CPT/HCPCS: 71260; 74177; Q9967

== ENCOUNTER 2020-12-07 12:44 | Outpatient (RCR) | payer MEDICARE, OTHER, SELFPAY ==
[2020-11-17 08:34] VITALS: BMI 36.0
[2020-12-28] MEDS: COVID-19 VACC, MRNA(PFIZER)/PF 30 MCG/0.3 ML SYRINGE IM (08:07)
== END 2021-03-01 23:59 ==
LOC: IMMUN 12:44
PROVIDERS: PCP Nurse Practitioner; Referring Provider Family Medicine; Visit Provider Family Medicine
DX: Z23 Encounter for immunization (principal)
CPT/HCPCS: 0001A; 0002A; 91300

== ENCOUNTER → 2021-01-06 06:26 | Outpatient (CLI) | payer MEDICARE, OTHER, SELFPAY ==
[2020-12-15 09:02] VITALS: BMI 34.3
--- NOTE | 2021-01-06 06:40 | MRI_ITS ---
STUDY: MRI LEFT KNEE REASON FOR EXAM: Posterior left knee pain, hyperextended knee 4 weeks ago. TECHNIQUE: Standardized fat and water weighted pulse sequences were obtained in all 3 orthogonal planes. COMPARISON: None. FINDINGS: There is a flap tear of the posterior horn of the medial meniscus with a small displaced fragment anterior to the root of the posterior horn of the medial meniscus (T2 coronal image 17; T2 sagittal image 10; proton-density sagittal images 17, 18). Normal hyaline cartilage of the medial femorotibial compartment. There is subchondral bone edema of the medial tibial plateau (T2 coronal images 15-21), a stress phenomenon. There is a mild sprain of the superficial fibers of the medial collateral ligament (T2 coronal image 21). Normal distal semimembranosus, gracilis and semitendinosus tendons. Normal lateral meniscus. Normal hyaline cartilage of the lateral femorotibial compartment. Normal lateral femoral condyle and tibial plateau. Normal proximal tibiofibular articulation. There is a mild sprain of the proximal lateral collateral ligament (T2 coronal image 15). Normal popliteus tendon. Normal biceps femoris tendon. Normal anterior cruciate ligament (ACL). There is a mild sprain of the proximal posterior cruciate ligament (T2 sagittal image 11). Normal congruent patellofemoral articulation. There is chondral tearing of the medial and lateral patellar facets (T2 axial images 8-10). Normal medial and lateral patellar retinaculum. Normal visualized quadriceps tendon. Normal patellar tendon. Normal Hoffa''s fat pad. There is a [id number] sized joint effusion. There is mild edema in the anterior subcutis adipose space. The otherwise visualized osseous structures are unremarkable. MRI/Lower Ext Joint Only (Routine) IMPRESSION: Medial meniscal tear. Subchondral bone edema of the medial tibial plateau, a stress phenomenon. Mild sprain of the posterior cruciate ligament. Mild sprains of the medial collateral and lateral collateral ligaments. Chondral tears of the patella. Joint effusion. Electronically Signed: Stefano Alvarez MD at 8:26 EDT Tel , Service support ,
== END ==
PROVIDERS: PCP Nurse Practitioner; Referring Provider Physician Assistant; Visit Provider Physician Assistant
DX: S83.8X2A Sprain of other specified parts of left knee, initial encounter (principal); X58.XXXA Exposure to other specified factors, initial encounter; Y93.9 Activity, unspecified; Y92.9 Unspecified place or not applicable; Y99.9 Unspecified external cause status
CPT/HCPCS: 73721

== ENCOUNTER → 2021-02-01 09:40 | Outpatient (CLI) | payer MEDICARE, OTHER, SELFPAY ==
[2021-01-20 08:38] VITALS: BMI 35.3
[2021-02-01 10:19] LABS: Hematocrit 44.8 % (40-54); Mean Corp Hgb Conc 31.3 g/dL (32-36); Mean Corpuscular Hgb 29.3 pg (27.0-32.0); Mean Corpuscular Volume 93.7 fL (80-94); Mean Platelet Vol. 10.5 fl (6.2-12.0); Platelet Count 261 K/mm3 (150-450); RBC Distribution Width CV 12.9 % (11.6-14.6); RBC Distribution Width SD 44.5 fl (35.1-43.9); Red Blood Count 4.78 M/mm3 (4.6-6.2); White Blood Count 6.1 K/mm3 (4.4-11.0)
[2021-02-01 10:47] LABS: Anion Gap 0 (5-15); BUN 13 mg/dL (7-18); Calcium,Total 8.8 mg/dL (8.5-10.1); Chloride 107 mmol/L (98-107); EST Glomerular Filtration Rate 79 mL/min (>60); Est Glom Filt Rate - Afr Amer 95 mL/min (>60); Glucose 85 mg/dL (74-106); Potassium 4.9 mmol/L (3.5-5.1); Sodium Level 140 mmol/L (136-145)
== END ==
PROVIDERS: PCP Nurse Practitioner; Referring Provider Physician Assistant; Visit Provider Physician Assistant
DX: Z01.818 Encounter for other preprocedural examination (principal)
CPT/HCPCS: 36415; 80048; 85027

== ENCOUNTER → 2021-02-07 10:41 | Outpatient (CLI) | payer MEDICARE, OTHER, SELFPAY ==
[2021-01-20 08:38] VITALS: BMI 35.3
--- NOTE | 2021-02-07 10:48 | EKG12_ITS ---
Test Reason : PREOP Blood Pressure : / mmHG Vent. Rate : 080 BPM Atrial Rate : 080 BPM P-R Int : 150 ms QRS Dur : 084 ms QT Int : 368 ms P-R-T Axes : 045 005 -39 degrees QTc Int : 424 ms Normal sinus rhythm ST & T wave abnormality, consider inferior ischemia ST & T wave abnormality, consider anterolateral ischemia Abnormal ECG Confirmed by MOHINI MATA MD ([id number]), web content editor SERENE LOJA ([id number]) on 02/08/2021 9:38:43 AM Referred By: [place] Confirmed By:MOHINI MATA MD
== END ==
PROVIDERS: PCP Nurse Practitioner; Referring Provider Physician Assistant; Visit Provider Physician Assistant
DX: Z01.818 Encounter for other preprocedural examination (principal); Z01.810 Encounter for preprocedural cardiovascular examination
CPT/HCPCS: 93005

== ENCOUNTER → 2021-02-14 12:54 | Outpatient (CLI) | payer MEDICARE, OTHER, SELFPAY ==
[2021-02-10 08:06] VITALS: BMI 35.7
--- NOTE | 2021-02-14 12:56 | ECHOCS_ITS ---
Reason For Study: Abn EKG Procedure This was a 2D Doppler, Color Flow transthoracic echocardiogram. Contrast injection was performed. Exam performed in department. Left Ventricle Normal LV size. Mild concentric left ventricular hypertrophy. Left ventricular systolic function is normal. The estimated ejection fraction is 60 %. Stage 1 diastolic dysfunction. Right Ventricle Normal RV size. Normal systolic function. Atria Normal left atrium. Normal right atrium. Mitral Valve Normal mitral valve. Tricuspid Valve Normal tricuspid valve. Aortic Valve The aortic valve is not well visualized. Pulmonic Valve Normal pulmonic valve. Great Vessels Normal aortic root. The pulmonary artery is normal size. Normal inferior vena cava. Pericardium/Pleural No pericardial effusion. Medication Diluted definity 2ml given slow IV push to enhance endocardial definition. MMode/2D Measurements & Calculations LVIDd: 4.5 cm IVSd: 1.4 cm Ao root diam: 3.4 cm LVIDs: 2.8 cm LVPWd: 1.2 cm RVDd: 3.0 cm FS: 37.1 % LAV(MOD-bp): 39.2 ml LVAd ap4: 22.1 cm2 SV(MOD-sp4): 39.6 ml LAV(MOD-bp) Indexed: 17.9 ml/m2 LVLd ap4: 7.3 cm LAV(MOD-sp2): 41.6 ml EDV(MOD-sp4): 55.5 ml LAV(MOD-sp4): 33.6 ml EDV(sp4-el): 56.6 ml LVAs ap4: 10.6 cm2 LVLs ap4: 6.1 cm ESV(MOD-sp4): 16.0 ml ESV(sp4-el): 15.9 ml EF(MOD-sp4): 71.3 % EF(sp4-el): 72.0 % SV(sp4-el): 40.8 ml LA A4 area: 14.6 cm2 LA dimension(2D): 4.0 cm RA A4 area: 10.6 cm2 Doppler Measurements & Calculations MV E max kavon: 50.6 cm/sec Lat Peak E' Kavon: 6.8 cm/sec Med Peak E' Kavon: 4.5 cm/sec MV A max kavon: 91.0 cm/sec E/E' lat: 7.5 E/E' med: 11.4 MV E/A: 0.56 Ao V2 max: 131.0 cm/sec LV V1 max: 123.0 cm/sec PA V2 max: 97.1 cm/sec Ao max P.9 mmHg LV V1 max P.1 mmHg Ao V2 mean: 95.8 cm/sec Ao mean P.0 mmHg Ao V2 VTI: 25.3 cm ECHO/Echo Complete W/ Contrast Interpretation Summary Normal LV size. Left ventricular systolic function is normal. The estimated ejection fraction is 60 %. Stage 1 diastolic dysfunction. Mild concentric left ventricular hypertrophy. Contrast injection was performed. Ordering Physician: Clyde Sky Referring Physician: Katie Simon Performed By: Anny Freeman, SUSIE, RVT
== END ==
PROVIDERS: PCP Nurse Practitioner; Referring Provider Internal Medicine Cardiovascular Disease; Visit Provider Internal Medicine Cardiovascular Disease
DX: Z01.810 Encounter for preprocedural cardiovascular examination (principal); R94.31 Abnormal electrocardiogram [ECG] [EKG]
CPT/HCPCS: 93306; Q9957; A4216; C8929; J3490

== ENCOUNTER 2021-04-30 23:46 | Emergency (ER) | payer MEDICARE, OTHER, SELFPAY ==
[2021-04-07 09:01] VITALS: BMI 35.6
[2021-04-30 23:46] VITALS: BP 146/83; PULSE 75; RESP 17; TEMP 36.7; O2SAT 95; BMI 36.3
[2021-05-01] VITALS (9 sets, daily range): BP systolic 114–165; BP diastolic 67–76; PULSE 67–91; RESP 14–20; TEMP 36.3; O2SAT 91–99
--- NOTE | 2021-05-01 00:07 | RAD_ITS ---
STUDY: X-RAY CHEST REASON FOR EXAM: Male, 70 years old. chest pain TECHNIQUE: Single AP portable view of the chest. COMPARISON: None. FINDINGS: The lungs are underexpanded. There is no demonstrated pleural abnormality. Normal size heart. Normal mediastinum and minerva. Normal visualized pulmonary arteries. Normal visualized aortic arch and descending thoracic aorta. Normal visualized thoracic spine. Bilateral shoulder arthroplasties are noted. There is no demonstrated abnormality of the visualized soft tissue structures of the upper abdomen. RAD/Chest 1 View (Portable) IMPRESSION: Degenerative changes, as described above. No demonstrated acute cardiopulmonary process. Electronically Signed: Lenin Paz MD at 1:58 EDT Tel , Service support ,
--- NOTE | 2021-05-01 00:08 | ED.VIS.CHEST ---
HPI History of Present Illness Chief Complaint: Chest Pain Informant: patient and spouse/S.O. Narrative Narrative: Patient presents with chest pain. He states that when he ate dinner this evening he had a little indigestion. He then took some Tums. It seemed to calm down. But now he has what he describes as a feeling like he needs to belch in the middle of his chest. It is middle sternal. It does radiate to the upper back base of the neck area. There may be some mild shortness of breath but no cough. No nausea vomiting or diaphoresis. No abdominal pain. He has not been lightheaded or presyncopal. Nothing really makes his better or worse. He has not had this before although he has had some indigestion he states this feels a little bit different. No recent travel surgery immobilization personal or family history of DVT or PE. He had a mild knee surgery recently. He has had prior shoulder replacements but is not having pain in that area. He states he did have some soreness in his left shoulder earlier in the evening but he did not have any other symptoms with it. Those symptoms are now gone. He has never been a smoker. He does have high cholesterol but no diabetes high or high blood pressure. Parents had heart disease in their late 60s to early 70s but not earlier. He does have a history of CLL. [facility] Medical History Chronic lymphocytic leukemia Chronic lymphocytic leukemia in remission Cyst of thyroid Epidermal inclusion cyst Hives Hyperlipidemia Ingrown nail Obesity Sleep apnea Vitamin D deficiency Home Medications cetirizine 10 mg PO DAILY 12/15/20 [History Last Taken Unknown] diphenhydramine HCl 25 mg PO DAILY 12/15/20 [History Last Taken Unknown] pramipexole 0.125 mg tablet 0.125 mg PO DAILY PRN 02/10/21 [History Last Taken Unknown] ibrutinib 420 mg tablet 280 mg PO DAILY tab 03/10/21 [History Last Taken Unknown] pravastatin 20 mg PO DAILY 05/01/21 [History Last Taken Unknown] Allergy/AdvReac Type Severity Reaction Status Date / Time naproxen AdvReac Intermediate Upset Verified 04/30/21 23:53 Stomach Family History Father Cancer Prostate cancer Mother Diabetes Mother Arthritis Mother Heart disease Surgical History History of bilateral hip replacements History of shoulder replacement History of thumb surgery Social History Smoking Status: Never smoker ROS ROS ED Constitutional Constitutional ED: Denies chills, fever(s) or sweats Eyes Eyes: Denies blurry vision or change in vision ENT ENT ED: Denies sore throat Cardiovascular Cardiovascular: Reports as per HPI and chest pain; Denies palpitations or racing heartbeat Respiratory/Chest Respiratory/Chest: Reports other Details: Possible very mild shortness of breath but not notable. ; Denies dyspnea Gastrointestinal Gastrointestinal: Denies abdominal pain, nausea or vomiting Genitourinary Genitourinary ED: Denies dysuria or hematuria Musculoskeletal Musculoskeletal: Reports back pain and neck pain; Denies arthralgias Integumentary Denies rash Neurologic Neurologic: Denies headache(s), paresthesias or weakness Psychiatric Psychiatric: Denies depression Endocrine Endocrinology: Denies polydipsia or polyuria Hematologic/Lymphatic Hematologic/Lymphatic: Denies easy bleeding or easy bruising EXAM Physical Exam Const Vital Signs: 04/30/21 23:46 04/30/21 23:49 05/01/21 00:07 Temperature 98.1 F Temperature Source Temporal Pulse Rate 75 Respiratory Rate 17 Respiratory Effort Normal Non-Labored Respiratory Pattern Normal Blood Pressure 146/83 H Blood Pressure Mean 104 Pulse Ox 95 Oxygen Delivery Method Room Air Room Air 05/01/21 00:38 05/01/21 00:45 05/01/21 00:46 Temperature Temperature Source Pulse Rate 90 90 91 Respiratory Rate 16 Respiratory Effort Respiratory Pattern Blood Pressure 165/76 H 145/72 H 145/72 H Blood Pressure Mean 96 Pulse Ox 98 Oxygen Delivery Method 05/01/21 00:56 05/01/21 01:00 05/01/21 02:27 Temperature Temperature Source Pulse Rate 85 86 85 Respiratory Rate 18 20 H Respiratory Effort Respiratory Pattern Blood Pressure 140/68 H 124/67 H 133/70 H Blood Pressure Mean 86 91 Pulse Ox 99 93 Oxygen Delivery Method Room Air Room Air 05/01/21 03:30 Temperature Temperature Source Pulse Rate 74 Respiratory Rate 14 Respiratory Effort Respiratory Pattern Blood Pressure 116/68 Blood Pressure Mean 84 Pulse Ox 91 Oxygen Delivery Method Room Air Positive well nourished and well developed General Appearance ED: well developed HEENT Reports moist mucous membranes normocephalic and atraumatic Eyes General Eye ED: Negative for pale conjunctiva Neck no JVD Chest Wall inspection of chest normal and palpation of chest normal Resp normal respiratory effort and clear to auscultation bilaterally Effort and Inspection: Negative for respiratory distress Cardio regular rate and regular rhythm Peripheral Pulses: radial pulses present and posterior tibial pulses present GI normal to inspection, nondistended, normoactive bowel sounds, soft to palpation, non-tender and non-distended Back/Spine no CVA tenderness Extremity normal to inspection Neuro Sensorium / Orientation: awake and alert Psych mental status grossly normal Skin no rashes or lesions noted Heart Score History: Moderately Suspicious ECG: Nonspecific Repolarization Age: >/= 65 years Risk Factors: 1 or 2 Risk Factors Troponin: </= Normal Limit Score: 5 MDM MDM MDM Narrative Medical decision making narrative: Blood work in including CBC shows no marked abnormalities. There are nonspecific elevation and decrease of white count and hemoglobin respectively. Glucose is minimally elevated at 123. Troponin is negative. With the patient's history of CLL, and his meniscus surgery just about 3 months ago, we did do a CT scan of his chest. This took some hours to get done and read due to some challenges of the night. But it is negative for any sign of acute process. I have hospitalist on page to discuss admission. He does have a heart score of 5. He thinks his last stress test was 10 or 12 years ago. He is feeling much better when I checked him. He was actually resting quietly. Lab Data Attestation: I reviewed the patient's lab results. Labs: Laboratory Results - last 24 hr 04/30/21 04/30/21 23:55 23:55 WBC 13.1 H RBC 4.32 L Hgb 12.5 L Hct 41.9 MCV 97.0 H MCH 28.9 MCHC 29.8 L RDW Std Deviation 49.1 H RDW Coeff of Rodney 13.7 Plt Count 278 MPV 10.5 Immature Gran % (Auto) 0.600 Neut % (Auto) 76.2 H Lymph % (Auto) 13.1 L [place] % (Auto) 7.2 Eos % (Auto) 2.5 Baso % (Auto) 0.4 Absolute Neuts (auto) 10.0 H Absolute Lymphs (auto) 1.71 Nucleated RBC % 0 Sodium 143 Potassium 4.1 Chloride 109 H Carbon Dioxide 30.0 Anion Gap 4 L BUN 22 H Creatinine 1.02 Estim Creat Clear Calc 67.06 Est GFR (MDRD) Af Amer 93 Est GFR (MDRD) Non-Af 77 BUN/Creatinine Ratio 21.6 H Glucose 123 H Calcium 8.6 Troponin I High Sens 7.1 Radiography Diagnostic Testing: Radiology Impression Chest X-Ray 05/01/21 00:07 IMPRESSION: Degenerative changes, as described above. No demonstrated acute cardiopulmonary process. Electronically Signed: Lenin Paz MD at 1:58 EDT Tel , Service support , Chest CTA 05/01/21 01:26 IMPRESSION: No demonstrated pulmonary embolism or arterial dissection. Electronically Signed: Lenin Paz MD at 4:32 EDT Tel , Service support , EKG Initial EKG: Comments: EKG done for chest pain read by me shows normal sinus rhythm with a rate of 68. There is some diffuse nonspecific baseline motion and nonspecific flattening. No acute ST elevation or depression. MD interval, QRS duration and QTC are normal. Discharge Plan Dx/Rx/DC Orders Clinical Impression: Chest pain Disposition Disposition: Acute Care [facility]
[2021-05-01] MEDS: Aspirin 81 MG TAB.CHEW 324 MG PO (00:37)
[2021-05-01] MEDS: Nitroglycerin SL (ED/IMG/CATH) 0.4 MG TABLET SL ×3 (00:38→00:56)
[2021-05-01 00:47] LABS: Absolute Lymphocyte Count 1.71 X10^3/uL (0.83-4.51); Basophil# 0.05 X10^3/uL; Basophil% 0.4 % (0-1); Eosinophil# 0.33 X10^3/uL; Eosinophils% 2.5 % (0-5); Hematocrit 41.9 % (40-54); Hemoglobin 12.5 g/dL (13.0-16.5); Lymphocyte # 1.71 X10^3/ul (0.83-4.51); Lymphocyte % 13.1 % (19-41); Mean Corp Hgb Conc 29.8 g/dL (32-36); Mean Corpuscular Hgb 28.9 pg (27.0-32.0); Mean Platelet Vol. 10.5 fl (6.2-12.0); Monocyte# 0.94 X10^3/uL; Monocyte% 7.2 % (0-10); NRBC Flagged by Analyzer 0 % (0-5); Neutrophil # 9.95 X10^3/uL (2.7-7.7); Neutrophil % 76.2 % (47-70); Platelet Count 278 K/mm3 (150-450); RBC Distribution Width CV 13.7 % (11.6-14.6); RBC Distribution Width SD 49.1 fl (35.1-43.9); Red Blood Count 4.32 M/mm3 (4.6-6.2); White Blood Count 13.1 K/mm3 (4.4-11.0)
[2021-05-01 00:53] LABS: Anion Gap 4 (5-15); BUN 22 mg/dL (7-18); BUN/Creat Ratio 21.6 RATIO (10-20); Calcium,Total 8.6 mg/dL (8.5-10.1); Chloride 109 mmol/L (98-107); Creatinine, Serum 1.02 mg/dL (0.70-1.30); EST Glomerular Filtration Rate 77 mL/min (>60); Est Glom Filt Rate - Afr Amer 93 mL/min (>60); Estimated Creatinine Clearance 67.06 ml/min; Glucose 123 mg/dL (74-106); Potassium 4.1 mmol/L (3.5-5.1); Sodium Level 143 mmol/L (136-145); Troponin-I HS 7.1 pg/mL (3.0-78.5)
--- NOTE | 2021-05-01 01:03 | ED.RN ---
tylenol given for nitro headache. order not crossing over to mar
[2021-05-01] MEDS: Acetaminophen 325 MG Tablet 650 MG PO (01:14)
--- NOTE | 2021-05-01 01:26 | CT_ITS ---
STUDY: CTA CHEST REASON FOR EXAM: Male, 70 years old. chest pain RADIATION DOSAGE (If Supplied By Facility): CTDIvol = ( 13.78 ) mGy, DLP = ( 510.34 ) mGycm TECHNIQUE: The examination was performed with the intravenous administration of IV 100mL Isovue-370. Post-processing of the angiographic images was performed, with multiplanar reformation and 3D reconstruction. Individualized dose optimization techniques were used for this CT. COMPARISON: None. FINDINGS: Normal enhancement of the main pulmonary artery and right and left pulmonary arteries. Normal enhancement of the bilateral peripheral pulmonary arteries. There is no demonstrated pulmonary embolism. Normal thoracic aorta and visualized great vessels. There is no demonstrated aortic dissection. Normal heart and pericardium. Normal mediastinum. Normal hilar regions. Normal visualized trachea and bronchi. There is dependent atelectasis in the lung bases. Normal pulmonary parenchyma. Normal pleura. Normal chest wall structures. There are degenerative changes of thoracic spine. Normal visualized upper abdomen. CT/CTA Chest W/WO Contrast IMPRESSION: No demonstrated pulmonary embolism or arterial dissection. Electronically Signed: Lenin Paz MD at 4:32 EDT Tel , Service support ,
--- NOTE | 2021-05-01 04:53 | PCM.HP.STD ---
HPI - General General Date of Admission: 05/01/21 Date of Service: 05/01/21 Chief Complaint: Chest pain HPI Narrative NAKUL WHATLEY, is a 70 M who presents [facility] Medical History Chronic lymphocytic leukemia Chronic lymphocytic leukemia in remission Cyst of thyroid Epidermal inclusion cyst Hives Hyperlipidemia Ingrown nail Obesity Sleep apnea Vitamin D deficiency Home Medications cetirizine 10 mg PO DAILY 12/15/20 [History Last Taken Unknown] diphenhydramine HCl 25 mg PO DAILY 12/15/20 [History Last Taken Unknown] pramipexole 0.125 mg tablet 0.125 mg PO DAILY PRN 02/10/21 [History Last Taken Unknown] ibrutinib 420 mg tablet 280 mg PO DAILY tab 03/10/21 [History Last Taken Unknown] pravastatin 20 mg PO DAILY 05/01/21 [History Last Taken Unknown] Allergy/AdvReac Type Severity Reaction Status Date / Time naproxen AdvReac Intermediate Upset Verified 04/30/21 23:53 Stomach Family History Father Cancer Prostate cancer Mother Diabetes Mother Arthritis Mother Heart disease Surgical History History of bilateral hip replacements History of shoulder replacement History of thumb surgery Social History Smoking Status: Never smoker ROS ROS Narrative Constitutional: Reports: Malaise, Weakness, Fatigue. Denies: Anorexia, Chills, Fever, Night Sweats, Weight Change Eyes: Denies: Blurred vision, Cataracts, Conjunctivae Inflammation, Pain, Redness, Vision Change HEENT: Denies: Difficulty Hearing, Difficulty Swallowing, Head Aches, Hearing Changes, Sinus Congestion, Sinus Drainage Cardiovascular: Denies: Chest Pain, Orthopnea, Palpitations Respiratory: Denies: Cough, Shortness of breath at rest, Sputum production Gastrointestinal: Denies: Abdominal Pain, Nausea, Vomiting Genitourinary: Denies: Dysuria Musculoskeletal: Denies: Joint Pain, Joint stiffness, Joint swelling, Joint Tenderness Skin: Denies: Rash, Wounds Neurological: Denies: Numbness, Tingling, Focal weakness Vital Signs Vital Signs Vital Signs: 04/30/21 23:46 04/30/21 23:49 05/01/21 00:07 Temperature 98.1 F Temperature Source Temporal Pulse Rate 75 Respiratory Rate 17 Respiratory Effort Normal Non-Labored Respiratory Pattern Normal Blood Pressure 146/83 H Blood Pressure Mean 104 Pulse Ox 95 Oxygen Delivery Method Room Air Room Air 05/01/21 00:38 05/01/21 00:45 05/01/21 00:46 Temperature Temperature Source Pulse Rate 90 90 91 Respiratory Rate 16 Respiratory Effort Respiratory Pattern Blood Pressure 165/76 H 145/72 H 145/72 H Blood Pressure Mean 96 Pulse Ox 98 Oxygen Delivery Method 05/01/21 00:56 05/01/21 01:00 05/01/21 02:27 Temperature Temperature Source Pulse Rate 85 86 85 Respiratory Rate 18 20 H Respiratory Effort Respiratory Pattern Blood Pressure 140/68 H 124/67 H 133/70 H Blood Pressure Mean 86 91 Pulse Ox 99 93 Oxygen Delivery Method Room Air Room Air 05/01/21 03:30 Temperature Temperature Source Pulse Rate 74 Respiratory Rate 14 Respiratory Effort Respiratory Pattern Blood Pressure 116/68 Blood Pressure Mean 84 Pulse Ox 91 Oxygen Delivery Method Room Air Weight Weight: 108.4 kg Body Mass Index (BMI) 36.3 Physical Exam Narrative Physical exam: General: Alert, Oriented x3, Cooperative, No apparent distress, Well developed HEENT: Atraumatic Oral: Moist Mucosa Neck: Supple Lungs: Clear to auscultation Cardiovascular: HS I+II, regular, no murmurs Abdomen: Bowel Sounds Present, Soft, Non Tender Extremities: No edema Skin: No rashes, No breakdown Neurological: Grossly intact Psych/Mental Status: Appropriate Results Lab / Micro Data Result Diagrams: 04/30/21 23:55 04/30/21 23:55 Labs: Laboratory Results - last 24 hr 04/30/21 23:55: WBC 13.1 H, RBC 4.32 L, Hgb 12.5 L, Hct 41.9, MCV 97.0 H, MCH 28.9, MCHC 29.8 L, RDW Std Deviation 49.1 H, RDW Coeff of Rodney 13.7, Plt Count 278, MPV 10.5, Immature Gran % (Auto) 0.600, Neut % (Auto) 76.2 H, Lymph % (Auto) 13.1 L, Moore % (Auto) 7.2, Eos % (Auto) 2.5, Baso % (Auto) 0.4, Absolute Neuts (auto) 10.0 H, Absolute Lymphs (auto) 1.71, Nucleated RBC % 0 04/30/21 23:55: Sodium 143, Potassium 4.1, Chloride 109 H, Carbon Dioxide 30.0, Anion Gap 4 L, BUN 22 H, Creatinine 1.02, Estim Creat Clear Calc 67.06, Est GFR (MDRD) Af Amer 93, Est GFR (MDRD) Non-Af 77, BUN/Creatinine Ratio 21.6 H, Glucose 123 H, Calcium 8.6, Troponin I High Sens 7.1 Radiology Impression Chest X-Ray 05/01/21 00:07 IMPRESSION: Degenerative changes, as described above. No demonstrated acute cardiopulmonary process. Electronically Signed: Lenin Paz MD at 1:58 EDT Tel , Service support , Chest CTA 05/01/21 01:26 IMPRESSION: No demonstrated pulmonary embolism or arterial dissection. Electronically Signed: Lenin Paz MD at 4:32 EDT Tel , Service support , Assessment & Plan Assessment/Plan (1) Chest pain: Charges/Coding Visit Charges OBSV E&M: 06422 Initial observation care L3
[2021-05-01 06:07] LABS: Troponin-I HS 9.5 pg/mL (3.0-78.5)
== END 2021-05-01 06:44 | disposition left against medical advice (07) ==
LOC: ED 05-01 04:47 → PCU 05-01 06:17
PROVIDERS: Emergency Provider Emergency Medicine; PCP Nurse Practitioner
DX: R07.9 Chest pain, unspecified (principal); E78.00 Pure hypercholesterolemia, unspecified; E04.1 Nontoxic single thyroid nodule; E78.5 Hyperlipidemia, unspecified; E55.9 Vitamin D deficiency, unspecified; G47.30 Sleep apnea, unspecified; E66.9 Obesity, unspecified; Z79.899 Other long term (current) drug therapy; Z85.6 Personal history of leukemia; Z96.643 Presence of artificial hip joint, bilateral; Z96.619 Presence of unspecified artificial shoulder joint
CPT/HCPCS: 71045; 71275; 80048; 84484; 85025; 93005; 99285; Q9967; A4216

== ENCOUNTER → 2021-05-16 07:48 | Outpatient (CLI) | payer MEDICARE, OTHER, SELFPAY ==
[2021-04-07 09:01] VITALS: BMI 35.6
--- NOTE | 2021-05-16 07:50 | CT_ITS ---
STUDY: CT CHEST, ABDOMEN T PELVIS WITH CONTRAST REASON FOR EXAM: Male, 71 years old. ASSESS RESPONSE TO TREATMENT. IV CONTRAST . Patient has a history of CLL. RADIATION DOSAGE (If Supplied By Facility): CTDIvol = ( 25.61 ) mGy, DLP = ( 2360.33 ) mGycm TECHNIQUE: Transaxial imaging was performed following intravenous administration of IV 100mL Isovue-300. Individualized dose optimization techniques were used for this CT. COMPARISON: Comparison is made with prior examination dated 06/10/2021 and 05/01/2021. FINDINGS: CHEST Mild degree of increased linear markings at the lung bases suggestive of scarring. There is no demonstrated pleural abnormality. There are calcifications of the coronary arteries. There are multiple small lymph nodes within the mediastinum, which are normal in size and morphology most compatible with reactive lymph hyperplasia. Normal hilar regions. Normal unenhanced pulmonary arteries. Normal aorta arch and descending thoracic aorta. There are multi-level degenerative changes of the thoracic spine. There is no demonstrated abnormality of the visualized upper abdomen. ABDOMEN The visualized lung bases are unremarkable. The visualized portions of the heart are within normal limits. Normal liver. Normal gallbladder and extrahepatic biliary system. Normal spleen. Normal pancreas. Normal bilateral adrenal glands. Normal right kidney. Normal left kidney. Normal visualized stomach. Normal small intestine. Normal colon. The appendix is visualized and appears normal. Normal abdominal aorta. Normal inferior vena cava. There is borderline retroperitoneal lymphadenopathy with enlarged nodes no greater than 10mm in the short axis diameter. Once again, mild degree of increased markings in the mesenteric fat in the root of the mesentery with the multiple small lymph nodes seen within the root of the mesentery. The largest measures 1.2 cm. Normal abdominal wall. There are degenerative changes of the visualized lumbar spine. PELVIS Normal urinary bladder. The patient is status post bilateral hip replacement. CT/CT Chest, Abd, Pel w/Contrast IMPRESSION: Stable examination. Electronically Signed: Micah Caceres MD at 10:24 EDT , Service support ,
== END ==
PROVIDERS: PCP Nurse Practitioner; Referring Provider Internal Medicine Medical Oncology; Visit Provider Internal Medicine Medical Oncology
DX: C91.90 Lymphoid leukemia, unspecified not having achieved remission (principal)
CPT/HCPCS: 71260; 74177; Q9967; A4216

== ENCOUNTER 2021-12-12 15:34 | Outpatient (CLI) | payer MEDICARE, OTHER, SELFPAY | END 2021-12-12 23:59 | disposition home or self-care (01) | LOC: LABSPEC 15:35 | PROVIDERS: PCP Nurse Practitioner; Visit Provider Otolaryngology | DX: J32.9 Chronic sinusitis, unspecified (principal) | CPT/HCPCS: 87070; 87205 ==

== ENCOUNTER → 2022-01-18 | Outpatient (CLI) | payer MEDICARE, OTHER, SELFPAY ==
--- NOTE | 2022-01-18 09:00 | RAD_ITS ---
STUDY: X-RAY CHEST REASON FOR EXAM: Male, 71 years old. COUGH TECHNIQUE: PA and lateral COMPARISON: None. FINDINGS: Elevated right hemidiaphragm and minor discoid atelectasis. There is no demonstrated pleural abnormality. Normal size heart. Normal mediastinum and minerva. Normal visualized pulmonary arteries. Normal visualized aortic arch and descending thoracic aorta. Dorsal spine demonstrates degenerative change.. Normal visualized ribs and clavicles. Bilateral shoulder prostheses are noted There is no demonstrated abnormality of the visualized soft tissue structures of the upper abdomen. RAD/Chest PA and Lateral IMPRESSION: Elevated right hemidiaphragm and minor discoid atelectasis of the right lower lobe Electronically Signed: Jeffrey Broderick MD at 17:12 EDT ,
== END | disposition home or self-care (01) ==
LOC: RAD 08:57
PROVIDERS: PCP Nurse Practitioner; Referring Provider Internal Medicine; Visit Provider Internal Medicine
DX: R05.9 Cough, unspecified (principal)
CPT/HCPCS: 71046

== ENCOUNTER → 2022-01-19 | Outpatient (CLI) | payer MEDICARE, OTHER, SELFPAY ==
[2022-01-19 12:42] LABS: Troponin-I HS 7 pg/mL (3.0-78.0)
[2022-01-19 13:10] LABS: D-Dimer Quantitative (DVT/PE) 1.04 FEU/ug/m (0.27-0.49)
== END | disposition home or self-care (01) ==
LOC: LABSPEC 12:04
PROVIDERS: PCP Nurse Practitioner; Referring Provider Internal Medicine; Visit Provider Internal Medicine
DX: R07.9 Chest pain, unspecified (principal)
CPT/HCPCS: 84484; 85379

== ENCOUNTER → 2022-01-19 | Outpatient (CLI) | payer MEDICARE, OTHER, SELFPAY ==
--- NOTE | 2022-01-19 14:00 | CT_ITS ---
STUDY: CTA CHEST REASON FOR EXAM: Male, 71 years old. ELEVATED DDIMER RADIATION DOSAGE (If Supplied By Facility): CTDIvol = ( 13.68 ) mGy, DLP = ( 512.91 ) mGycm TECHNIQUE: The examination was performed with the intravenous administration of IV 100mL Isovue-370. Post-processing of the angiographic images was performed, with multiplanar reformation and 3D reconstruction. Individualized dose optimization techniques were used for this CT. COMPARISON: Comparison is made with prior study dated 05/01/2021. FINDINGS: Normal enhancement of the main pulmonary artery and right and left pulmonary arteries. Normal enhancement of the bilateral peripheral pulmonary arteries. There is no demonstrated pulmonary embolism. There is atherosclerotic calcification of the aortic arch with tortuosity. There is no demonstrated aortic dissection. Normal heart and pericardium. Normal mediastinum. Normal hilar regions. Normal visualized trachea and bronchi. The lungs are well expanded. Stable mild increased markings at the lung bases slightly more prominent on the right side suggestive of scarring. Normal pleura. Normal chest wall structures. There are degenerative changes of thoracic spine. Normal visualized upper abdomen. CT/CTA Chest W/WO Contrast IMPRESSION: No evidence of pulmonary embolism. Mild increased markings at the lung bases suggestive of mild scarring. Electronically Signed: Micah Caceres MD at 15:00 EDT ,
== END | disposition home or self-care (01) ==
LOC: CT 13:59
PROVIDERS: PCP Nurse Practitioner; Referring Provider Internal Medicine; Visit Provider Internal Medicine
DX: R79.89 Other specified abnormal findings of blood chemistry (principal); R07.9 Chest pain, unspecified
CPT/HCPCS: 71275; 84484; 85379; Q9967

== ENCOUNTER → 2022-03-20 | Outpatient (CLI) | payer MEDICARE, OTHER, SELFPAY ==
--- NOTE | 2022-03-20 06:53 | CT_ITS ---
STUDY: CT CHEST, ABDOMEN T PELVIS WITH CONTRAST REASON FOR EXAM: Male, 71 years old. ASSESS TREATMENT RESPONSE. History of CLL with chemotherapy. RADIATION DOSAGE (If Supplied By Facility): CTDIvol = ( 23.96 ) mGy, DLP = ( 2327.42 ) mGycm TECHNIQUE: Transaxial imaging was performed following intravenous administration of IV 100mL Isovue-370. Individualized dose optimization techniques were used for this CT. COMPARISON: Comparison is made with prior study dated 05/16/2021 and 01/19/2022. FINDINGS: CHEST Stable mild degree of increased linear markings at the lung bases suggestive of scarring. There is no demonstrated pleural abnormality. There are calcifications of the coronary arteries. There are multiple small lymph nodes within the mediastinum, which are normal in size and morphology most compatible with reactive lymph hyperplasia. Normal hilar regions. Normal unenhanced pulmonary arteries. Normal aorta arch and descending thoracic aorta. There are multi-level degenerative changes of the thoracic spine. ABDOMEN Normal liver. Normal gallbladder and extrahepatic biliary system. Normal spleen. Normal pancreas. Normal bilateral adrenal glands. Normal right kidney. Normal left kidney. Normal visualized stomach. Normal small intestine. Normal colon. The appendix is visualized and appears normal. There is scattered atherosclerotic calcification of the abdominal aorta, without a demonstrated aneurysm. Normal inferior vena cava. There is borderline retroperitoneal lymphadenopathy with enlarged nodes no greater than 10mm in the short axis diameter. With again, there is a mild degree of increased markings in the mesenteric fat at the level of the root of the mesentery. Small lymph nodes are seen within it. Normal abdominal wall. There are mild degenerative changes of the visualized lumbar spine. PELVIS Normal urinary bladder. There is no pelvic fluid. There is no pelvic lymphadenopathy or mass lesion. There is diffuse atherosclerotic calcification of the pelvic arteries. The patient is status post bilateral hip replacement. CT/CT Chest, Abd, Pel w/Contrast IMPRESSION: Normal enhanced CT chest, abdomen T pelvis examination. Electronically Signed: Micah Caceres MD at 14:41 EDT ,
[2022-03-20 07:05] LABS: CREATININE FINGERSTICK < 0.9 mg/dL (0.70-1.30); EGFR FINGERSTICK > 60.0000 mL/min (>60)
== END | disposition home or self-care (01) ==
LOC: CT 06:52
PROVIDERS: PCP Nurse Practitioner; Referring Provider Internal Medicine Medical Oncology; Visit Provider Internal Medicine Medical Oncology
DX: Z01.812 Encounter for preprocedural laboratory examination (principal); C91.10 Chronic lymphocytic leukemia of B-cell type not having achieved remission
CPT/HCPCS: 71260; 74177; Q9967

== ENCOUNTER → 2022-06-19 | Outpatient (CLI) | payer MEDICARE, OTHER, SELFPAY ==
[2022-06-20 13:40] LABS: PSA, Free 0.76 ng/mL; PSA, Free % 15.2 % (.)
== END | disposition home or self-care (01) ==
LOC: LAB 09:17
PROVIDERS: PCP Nurse Practitioner Family; Referring Provider Urology; Visit Provider Urology
DX: R97.20 Elevated prostate specific antigen [PSA] (principal)
CPT/HCPCS: 36415; 84153; 84154

== ENCOUNTER → 2022-07-28 | Outpatient (CLI) | payer MEDICARE, OTHER, SELFPAY ==
[2022-07-28 12:32] LABS: BNP,B-Type NATRIURETIC PEPTIDE 10.4 pg/mL (0-100)
[2022-07-28 12:40] LABS: AST(SGOT) 21 U/L (15-37); Alanine Aminotransfer ALT/SGPT 31 U/L (16-61); Albumin, Serum 3.6 g/dL (3.2-5.0); Alkaline Phosphatase 114 U/L (45-117); Anion Gap 6 (5-15); BUN 17 mg/dL (7-18); BUN/Creat Ratio 17.8 RATIO (10-20); Bilirubin, Direct 0.15 mg/dL (0.00-0.30); Calcium,Total 8.9 mg/dL (8.5-10.1); Chloride 106 mmol/L (98-107); Cholesterol 180 mg/dL (200); Creatinine, Serum 0.95 mg/dL (0.70-1.30); EST Glomerular Filtration Rate 83 mL/min (>60); Est Glom Filt Rate - Afr Amer 100 mL/min (>60); Globulin 3.2 g/dL (2.2-4.2); Glucose 86 mg/dL (74-106); High Density Lipoprotein 52 mg/dL; Potassium 4.6 mmol/L (3.5-5.1); Protein, Total 6.8 g/dL (6.4-8.2); Sodium Level 138 mmol/L (136-145); Triglycerides 92 mg/dL; Very Low Density Lipoprotein 18 mg/dL (5-40)
== END | disposition home or self-care (01) ==
LOC: PAVLAB 11:42
PROVIDERS: PCP Nurse Practitioner Family; Referring Provider Internal Medicine Cardiovascular Disease; Visit Provider Internal Medicine Cardiovascular Disease
DX: R06.00 Dyspnea, unspecified (principal); I10 Essential (primary) hypertension; E78.5 Hyperlipidemia, unspecified
CPT/HCPCS: 36415; 80048; 80061; 80076; 83880

== ENCOUNTER → 2022-09-04 | Outpatient (CLI) | payer MEDICARE, OTHER, SELFPAY ==
--- NOTE | 2022-09-04 06:52 | ECHOD_ITS ---
Reason For Study: SOB Procedure This was a 2D Doppler, Color Flow transthoracic echocardiogram. Myocardial strain analysis was performed in this exam to aid in the assessment of cardiac function. Exam performed in department. Left Ventricle Normal LV size. Mild concentric left ventricular hypertrophy. Left ventricular systolic function is normal. The estimated ejection fraction is 60 %. No regional wall motion abnormalities noted. Right Ventricle Normal right ventricle. Normal systolic function. Atria Normal left atrium. Normal right atrium. Mitral Valve Normal mitral valve. Tricuspid Valve Normal tricuspid valve. Aortic Valve Normal aortic valve. Trisinus/trileaflet aortic valve. Pulmonic Valve Normal pulmonic valve. Great Vessels Normal aortic root. The pulmonary artery is normal size. Normal inferior vena cava. Pericardium/Pleural No pericardial effusion. MMode/2D Measurements & Calculations LVIDd: 4.1 cm IVSd: 1.2 cm Ao root diam: 3.5 cm LVIDs: 2.2 cm LVPWd: 1.2 cm RVDd: 3.5 cm FS: 46.0 % LAV(MOD-bp): 45.7 ml LVAd ap4: 29.0 cm2 LVAd ap2: 29.8 cm2 LAV(MOD-bp) Indexed: 21.0 ml/m2 LVLd ap4: 7.5 cm LVLd ap2: 7.9 cm LAV(MOD-sp2): 49.9 ml EDV(MOD-sp4): 94.1 ml EDV(MOD-sp2): 94.3 ml LAV(MOD-sp4): 41.8 ml EDV(sp4-el): 95.1 ml EDV(sp2-el): 95.8 ml LVAs ap4: 14.5 cm2 LVAs ap2: 13.9 cm2 LVLs ap4: 5.5 cm LVLs ap2: 6.8 cm ESV(MOD-sp4): 32.6 ml ESV(MOD-sp2): 25.7 ml ESV(sp4-el): 32.4 ml ESV(sp2-el): 24.0 ml EF(MOD-sp4): 65.4 % EF(MOD-sp2): 72.7 % EF(sp4-el): 65.9 % SV(MOD-sp4): 61.6 ml SV(MOD-sp2): 68.6 ml SV(sp4-el): 62.7 ml LA dimension(2D): 3.5 cm LA A4 area: 16.6 cm2 RA A4 area: 13.0 cm2 Doppler Measurements & Calculations MV E max kavon: 54.4 cm/sec Lat Peak E' Kavon: 7.8 cm/sec Med Peak E' Kavon: 5.7 cm/sec MV A max kavon: 87.2 cm/sec E/E' lat: 7.0 E/E' med: 9.6 MV E/A: 0.62 Ao V2 max: 118.4 cm/sec LV V1 max: 98.7 cm/sec PA V2 max: 127.4 cm/sec Ao max P.6 mmHg LV V1 max P.9 mmHg Ao V2 mean: 82.8 cm/sec LV V1 mean P.1 mmHg Ao mean P.1 mmHg LV V1 mean: 67.9 cm/sec Ao V2 VTI: 26.5 cm LV V1 VTI: 22.9 cm AV (velocity ratio): 0.86 ECHO/Echo Complete Interpretation Summary Normal LV size. Mild concentric left ventricular hypertrophy. Left ventricular systolic function is normal. The estimated ejection fraction is 60 %. The global longitudinal strain is normal. The global longitudinal strain = -22. 1 % (normal). Structurally normal valves. Ordering Physician: Clyde Sky Referring Physician: Kateryna Booker Performed By: Ashli Mckeon RDCS
--- NOTE | 2022-09-04 09:52 | STRESSREP ---
Stress Test Report Pharmacologic myocardial perfusion stress test. 72-year-old man with a history of dyspnea on exertion Resting EKG demonstrates sinus rhythm with a rate of 73 bpm. Resting blood pressure is 160/78 mmHg. 0.4 mg of regadenoson was infused per usual protocol followed by rapid intravenous saline flush injection. Continuous EKG monitoring was performed. The maximum heart rate was 92 bpm which was 61% of max impacted heart rate the maximum workload was 1 metabolic equivalent. At rest there were no ST or T wave changes noted to suggest ischemia and at peak infusion nonspecific ST changes were noted with did not meet the criteria for ischemia. Occasional premature ventricular complexes noted. No clinical angina is noted. The final blood pressure was 160/78 mmHg. Myocardial perfusion protocol. 10.8 mCi of technetium 99m sestamibi was injected at rest. 0.4 mg of regadenoson was infused per usual protocol. At peak infusion to 2.4 mCi of technetium 99m sestamibi was injected stress images were obtained stress and rest images were reconstructed and compared in the short axis vertical long and horizontal long axis. Gated images were also obtained. Perfusion SPECT analysis: Review of the stress images demonstrate normal uptake of tracer noted in all areas of the myocardium. The resting images similar demonstrated normal uptake of tracer noted in all areas of the myocardium. No areas of reversibility are noted to suggest ischemia and no previous infarct is noted. Gated SPECT analysis: The gated ejection fraction is 77. Conclusion: Normal pharmacologic myocardial perfusion stress test. Preserved ejection fraction.
== END | disposition home or self-care (01) ==
LOC: CVS 06:48
PROVIDERS: PCP Nurse Practitioner Family; Referring Provider Internal Medicine Cardiovascular Disease; Visit Provider Internal Medicine Cardiovascular Disease
DX: R06.09 Other forms of dyspnea (principal)
CPT/HCPCS: 78452; 93017; 93306; A9500; A4216; J2785

== ENCOUNTER → 2022-09-06 | Outpatient (CLI) | payer MEDICARE, OTHER, SELFPAY ==
--- NOTE | 2022-09-06 08:05 | CT_ITS ---
EXAM: CT LEFT LOWER EXTREMITY WITHOUT INTRAVENOUS CONTRAST CLINICAL INDICATION: LEFT KNEE PAIN-FREDDIE PROTOCOL TECHNIQUE: Helically acquired images were obtained of the left lower extremity without intravenous contrast. 2-D reformats were performed by the technologist. CTDIvol = ( 18.52 ) mGy, DLP = ( 1368.55 ) mGycm This CT exam was performed using one or more of the following dose reduction techniques: automated exposure control, adjustment of the mA and/or kV according to patient size, and/or use of iterative reconstruction technique. This report was created using [employer] technology. COMPARISON: None. FINDINGS: BONES/JOINTS: Small suprapatellar joint effusion. Moderate osteoarthrosis involving the periphery of the medial femorotibial compartment. Left total hip arthroplasty shows satisfactory alignment and no complications. No acute or healing fracture or malalignment. No unusual lytic or sclerotic lesions of bone. Calcaneal enthesopathy posteriorly. SOFT TISSUES: Moderate-size pericardial effusion. No soft tissue gas or any radiopaque foreign bodies. Subcutaneous edema anterior to the patellar tendon. CT/Extremity Lower without Contra IMPRESSION: Moderate osteoarthrosis involving the knee. No acute or healing fracture or malalignment. Electronically Signed: Chris Andres MD at 3:22 EST ,
[2022-09-06 09:22] LABS: Absolute Lymphocyte Count 1.13 X10^3/uL (0.83-4.51); Absolute Neutrophil Count 3.9 X10^3/uL (2.0-7.7); Basophil# 0.02 X10^3/uL; Basophil% 0.4 % (0-1); Eosinophil# 0.12 X10^3/uL; Eosinophils% 2.1 % (0-5); Hematocrit 42.9 % (40-54); Hemoglobin 13.3 g/dL (13.0-16.5); Lymphocyte # 1.13 X10^3/ul (0.83-4.51); Lymphocyte % 19.9 % (19-41); Mean Corpuscular Hgb 29.2 pg (27.0-32.0); Mean Corpuscular Volume 94.3 fL (80-94); Mean Platelet Vol. 10.4 fl (6.2-12.0); Monocyte% 8.8 % (0-10); NRBC Flagged by Analyzer 0 % (0-5); Neutrophil % 68.4 % (47-70); Platelet Count 253 K/mm3 (150-450); RBC Distribution Width CV 13.2 % (11.6-14.6); RBC Distribution Width SD 45.5 fl (35.1-43.9); Red Blood Count 4.55 M/mm3 (4.6-6.2); White Blood Count 5.7 K/mm3 (4.4-11.0)
[2022-09-06 09:40] LABS: Hemoglobin A1c 5.6 % (3.8-5.6)
[2022-09-06 09:49] LABS: ALB/GLOB Ratio 1.2 RATIO (0.9-2.4); AST(SGOT) 18 U/L (15-37); Alanine Aminotransfer ALT/SGPT 27 U/L (16-61); Albumin, Serum 3.4 g/dL (3.2-5.0); Alkaline Phosphatase 107 U/L (45-117); Anion Gap 3 (5-15); BUN 14 mg/dL (7-18); BUN/Creat Ratio 14.4 RATIO (10-20); Calcium,Total 8.6 mg/dL (8.5-10.1); Chloride 109 mmol/L (98-107); Creatinine, Serum 0.97 mg/dL (0.70-1.30); EST Glomerular Filtration Rate 81 mL/min (>60); Est Glom Filt Rate - Afr Amer 98 mL/min (>60); Globulin 2.9 g/dL (2.2-4.2); Glucose 90 mg/dL (74-106); LDH 177 U/L (87-241); Potassium 4.2 mmol/L (3.5-5.1); Protein, Total 6.3 g/dL (6.4-8.2); Sodium Level 141 mmol/L (136-145)
== END | disposition home or self-care (01) ==
LOC: CT 08:01
PROVIDERS: Internal Medicine Medical Oncology; PCP Nurse Practitioner Family; Referring Provider Orthopaedic Surgery; Visit Provider Orthopaedic Surgery
DX: Z01.810 Encounter for preprocedural cardiovascular examination (principal); C91.10 Chronic lymphocytic leukemia of B-cell type not having achieved remission; E11.9 Type 2 diabetes mellitus without complications; E78.5 Hyperlipidemia, unspecified; M17.12 Unilateral primary osteoarthritis, left knee
CPT/HCPCS: 36415; 73700; 80053; 83036; 83615; 85025

== ENCOUNTER → 2022-09-27 | Outpatient (CLI) | payer MEDICARE, OTHER, SELFPAY ==
--- NOTE | 2022-09-27 08:00 | KNEE_PTH ---
PATIENT: NAKUL WHATLEY LOC: SP U#:[id number] AGE/SX: 72/M ROOM: RE09/27/[address]: Dr. Ronald Yu DO : 1950 BED: DIS: 09/27/2022 SPEC #: [id number] RECD: 09/27/22 15:01 STATUS: CAMPOS RENancy #: [id number] KAMI: 09/27/22 08:[address]: Ronald Yu DEPT: SURGICAL PATHOLOGY RECD BY: Ailin Moore ENTERED: 09/28/22 09:44 SP TYPE: TOTAL KNEE OTHR DR: Kateryna Booker, [facility] Tissues: Knee, NOS Procedures: Decalcification bone/plaque Surgery Specimen Level IV HEADER OPERATION: Left total knee arthroplasty with robotic assist PRE-OP DIAGNOSIS: Unilateral primary osteoarthritis, varus deformity TISSUE SUBMITTED: Left knee bone and tissue MICROSCOPIC DIAGNOSIS Bone and tissue of left knee, total knee resection: Consistent with degenerative joint disease. AM:kristy 10/04/2022 MICROSCOPIC DESCRIPTION Slides are reviewed. GROSS DESCRIPTION Received is one container designated bone and tissue left knee. The specimen consists of multiple fragments of cardoso-yellow bone measuring in aggregate 14 x 12 x 2 cm. Also in the specimen container are multiple fragments of yellow-white soft tissue measuring in aggregate 2 x 2 x 1 cm. A number of bony fragments contain articular surfaces consistent with tibial plateau and femoral condyle and displaying prominent osteophyte formation, eburnation, and bone erosion. Bench Carpenter sections are submitted in two cassettes as follows: 1 - soft tissue, 2 - bone after decalcification. / AM:kristy 09/28/2022 TC:5 [facility]: [id number], [id number]
== END | disposition home or self-care (01) ==
LOC: LABSPEC 15:20
PROVIDERS: PCP Nurse Practitioner Family; Visit Provider Orthopaedic Surgery
DX: M17.12 Unilateral primary osteoarthritis, left knee (principal); Z96.652 Presence of left artificial knee joint
CPT/HCPCS: 88305; 88311

== ENCOUNTER → 2022-10-16 | Outpatient (CLI) | payer MEDICARE, OTHER, SELFPAY ==
--- NOTE | 2022-10-16 13:13 | VDLE_ITS ---
Reason For Study: LEG PAIN RIGHT LEFT CFV is compressible, spontaneous, phasic, GSV is normal. competent and demonstrates normal CFV is compressible, spontaneous, phasic, augmentation. competent, and demonstrates normal Procedure augmentation. This is a venous duplex using B-mode, color FV is compressible, spontaneous, phasic, flow and spectral Doppler. competent and demonstrates normal Exam performed in department. augmentation. The exam was diagnostic. POP V is compressible, spontaneous, phasic, A preliminary report was called and/or faxed competent and demonstrates normal to Dr. Yu. augmentation. T/P Trunk is compressible. PTV is compressible. LT PerV is compressible. VL/Venous Duplex US, Unilateral Interpretation Summary Deep veins of the left lower extremity are patent and compressible segmentally. There is no evidence of left lower extremity deep vein thrombosis. Valvular competence appears intac t within the proximal deep venous system on the left . The left great saphenous vein appears patent a nd compressible segmentally. Ordering Physician: Ronald Yu Referring Physician: Ronald Yu Performed By: Avi Baptiste RVT
== END | disposition home or self-care (01) ==
PROVIDERS: PCP Nurse Practitioner Family; Referring Provider Orthopaedic Surgery; Visit Provider Orthopaedic Surgery
DX: M79.662 Pain in left lower leg (principal)
CPT/HCPCS: 93971

== ENCOUNTER → 2022-11-06 | Outpatient (CLI) | payer MEDICARE, OTHER, SELFPAY ==
--- NOTE | 2022-11-06 13:19 | VDLE_ITS ---
Reason For Study: LLE PAIN RIGHT LEFT CFV is compressible, spontaneous, phasic, GSV is normal. competent and demonstrates normal CFV is compressible, spontaneous, phasic, augmentation. competent, and demonstrates normal Procedure augmentation. This is a venous duplex using B-mode, color FV is compressible, spontaneous, phasic, flow and spectral Doppler. competent and demonstrates normal Exam performed in department. augmentation. The study was technically difficult. POP V is compressible, spontaneous, phasic, A preliminary report was called and/or faxed competent and demonstrates normal to [facility] @ [phone]. augmentation. T/P Trunk is compressible. PTV is compressible. LT PerV is compressible. VL/Venous Duplex US, Unilateral Interpretation Summary Deep veins of the left lower extremity are patent and compressible segmentally. There is no evidence of left lower extremity deep vein thrombosis. The left great saphenous vein sridhar ears patent and compressible segmentally. Ordering Physician: Ronald Yu Referring Physician: Kateryna Booker Performed By: Jess Jose RDCS, RVT
== END | disposition home or self-care (01) ==
LOC: CVS 13:18
PROVIDERS: PCP Nurse Practitioner Family; Visit Provider Orthopaedic Surgery
DX: M79.605 Pain in left leg (principal)
CPT/HCPCS: 93971

== ENCOUNTER → 2022-12-12 | Outpatient (CLI) | payer MEDICARE, OTHER, SELFPAY ==
[2022-12-12 14:24] LABS: PSA,Total- Diagnostic 4.25 ng/mL (0.0-4.0)
== END | disposition home or self-care (01) ==
LOC: LAB 13:12
PROVIDERS: PCP Nurse Practitioner Family; Referring Provider Registered Nurse; Visit Provider Registered Nurse
DX: R97.20 Elevated prostate specific antigen [PSA] (principal)
CPT/HCPCS: 36415; 84153

== ENCOUNTER → 2023-11-07 | Outpatient (CLI) | payer MEDICARE, OTHER, SELFPAY ==
--- NOTE | 2023-11-07 07:51 | CT_ITS ---
STUDY: CT MAXILLOFACIAL SINUSES REASON FOR EXAM: Male, 73 years old. SINUSITIS RADIATION DOSAGE (If Supplied By Facility): CTDIvol = ( 33.06 ) mGy, DLP = ( 829.72 ) mGycm TECHNIQUE: The patient was scanned in a multi detector CT scanner. High resolution axial imaging was performed without the administration of intravenous contrast material. Sagittal and coronal images were reconstructed. Individualized dose optimization techniques were used for this CT. COMPARISON: None. FINDINGS: FRONTAL SINUSES: Normal aeration, without mucosal inflammatory disease. ETHMOIDAL SINUSES: Normal aeration, without mucosal inflammatory disease. MAXILLARY SINUSES: Minimal degree of mucosal thickening along the inferior aspect of the right maxillary sinus. SPHENOIDAL SINUSES: Normal aeration, without mucosal inflammatory disease. There is patency of the bilateral maxillary infundibuli with normal uncinate processes, ethmoid bullae, and hiatus semilunaris. Normal bilateral middle turbinates. Normal bilateral inferior turbinates. Normal midline nasal septum. There is patency of the bilateral nasal airways. The visualized osseous structures are normal. The visualized bilateral orbital contents are normal. CT/Sinus/Facial Bone IMPRESSION: Minimal degree of mucosal thickening at the base of the right maxillary sinus. Electronically Signed: Micah Caceres MD at 10:53 EST ,
== END | disposition home or self-care (01) ==
LOC: CT 07:50
PROVIDERS: PCP Nurse Practitioner Family; Referring Provider Otolaryngology; Visit Provider Otolaryngology
DX: J32.9 Chronic sinusitis, unspecified (principal)
CPT/HCPCS: 70486

== ENCOUNTER → 2023-11-23 | Outpatient (CLI) | payer MEDICARE, OTHER, SELFPAY ==
[2023-11-23 13:21] LABS: Absolute Neutrophil Count 1.5 X10^3/uL (2.0-7.7); Basophil# 0.03 X10^3/uL; Basophil% 1.1 % (0-1); Eosinophil# 0.02 X10^3/uL; Eosinophils% 0.7 % (0-5); Hematocrit 38.9 % (40-54); Hemoglobin 12.2 g/dL (13.0-16.5); Lymphocyte % 31.9 % (19-41); Mean Corp Hgb Conc 31.4 g/dL (32-36); Mean Corpuscular Hgb 29.7 pg (27.0-32.0); Mean Corpuscular Volume 94.6 fL (80-94); Mean Platelet Vol. 9.7 fl (6.2-12.0); Monocyte# 0.41 X10^3/uL; Monocyte% 14.5 % (0-10); NRBC Flagged by Analyzer 0 % (0-5); Neutrophil # 1.45 X10^3/uL (2.7-7.7); Neutrophil % 51.4 % (47-70); Platelet Count 239 K/mm3 (150-450); RBC Distribution Width CV 13.4 % (11.6-14.6); RBC Distribution Width SD 46.8 fl (35.1-43.9); Red Blood Count 4.11 M/mm3 (4.6-6.2); White Blood Count 2.8 K/mm3 (4.4-11.0)
[2023-11-23 13:56] LABS: ALB/GLOB Ratio 1.1 RATIO (0.9-2.4); AST(SGOT) 16 U/L (15-37); Alanine Aminotransfer ALT/SGPT 21 U/L (16-61); Albumin, Serum 3.7 g/dL (3.2-5.0); Alkaline Phosphatase 94 U/L (45-117); Anion Gap 4 (5-15); BUN 18 mg/dL (7-18); BUN/Creat Ratio 16.7 RATIO (10-20); Calcium,Total 9.1 mg/dL (8.5-10.1); Chloride 107 mmol/L (98-107); Creatinine, Serum 1.08 mg/dL (0.70-1.30); EST Glomerular Filtration Rate 72 mL/min (>60); Est Glom Filt Rate - Afr Amer 87 mL/min (>60); Globulin 3.3 g/dL (2.2-4.2); Glucose 117 mg/dL (74-106); LDH 183 U/L (87-241); Potassium 4.3 mmol/L (3.5-5.1); Sodium Level 140 mmol/L (136-145)
== END | disposition home or self-care (01) ==
LOC: LAB 12:29
PROVIDERS: Internal Medicine Medical Oncology; PCP Nurse Practitioner Family; Referring Provider Otolaryngology; Visit Provider Otolaryngology
DX: Z01.818 Encounter for other preprocedural examination (principal); C91.91 Lymphoid leukemia, unspecified, in remission; E78.5 Hyperlipidemia, unspecified
CPT/HCPCS: 36415; 80053; 83615; 85025

== ENCOUNTER → 2023-11-30 | Outpatient (CLI) | payer MEDICARE, OTHER, SELFPAY ==
--- NOTE | 2023-11-30 08:20 | EKG12_ITS ---
Test Reason : PRE OP Blood Pressure : / mmHG Vent. Rate : 065 BPM Atrial Rate : 065 BPM P-R Int : 152 ms QRS Dur : 086 ms QT Int : 394 ms P-R-T Axes : 062 013 019 degrees QTc Int : 409 ms Normal sinus rhythm Nonspecific T wave abnormality Abnormal ECG Confirmed by Ronald Herbert ([id number]), editor book EZE GONZALEZ ([id number]) on 12/03/2023 1:59:19 PM Referred By: Savage Soto Confirmed By:Ronald Herbert
== END | disposition home or self-care (01) ==
LOC: PSN 08:20
PROVIDERS: PCP Nurse Practitioner Family; Referring Provider Otolaryngology; Visit Provider Otolaryngology
DX: Z01.818 Encounter for other preprocedural examination (principal)
CPT/HCPCS: 93005

== ENCOUNTER → 2024-02-11 | Outpatient (CLI) | payer MEDICARE, OTHER, SELFPAY | END | disposition home or self-care (01) | LOC: PSN 11:49 | PROVIDERS: PCP Nurse Practitioner Family; Referring Provider Physician Assistant Medical; Visit Provider Physician Assistant Medical | DX: R00.2 Palpitations (principal); I49.9 Cardiac arrhythmia, unspecified | CPT/HCPCS: 93225; 93226 ==

== ENCOUNTER → 2024-03-21 | Outpatient (CLI) | payer MEDICARE, OTHER, SELFPAY ==
--- NOTE | 2024-03-21 13:55 | RAD_ITS ---
STUDY: X-RAY CHEST REASON FOR EXAM: Male, 73 years old. Chest pain. TECHNIQUE: Frontal and lateral views of the chest. COMPARISON: None. FINDINGS: Low volume inspiration with bibasilar atelectasis, right greater than left. There is no demonstrated pleural abnormality. Borderline cardiomegaly. Normal mediastinum and minerva. Normal visualized pulmonary arteries. Aortic tortuosity. Diffuse thoracic osteopenia with moderate spondylosis. Normal visualized ribs, clavicles, and shoulders. No abnormality of the visualized soft tissue structures of the upper abdomen. RAD/Chest PA and Lateral IMPRESSION: Borderline cardiomegaly with low volume inspiration and no acute or active cardiopulmonary disease. Electronically Signed: Manas Redding MD at 15:05 EDT ,
== END | disposition home or self-care (01) ==
LOC: RAD 13:51
PROVIDERS: PCP Nurse Practitioner Family; Referring Provider Physician Assistant Medical; Visit Provider Physician Assistant Medical
DX: R07.89 Other chest pain (principal)
CPT/HCPCS: 71046

== ENCOUNTER 2024-03-31 07:25 | Day surgery (SDC) | payer MEDICARE, OTHER, SELFPAY ==
[2024-03-28 12:01] VITALS: BMI 33.7
--- NOTE | 2024-03-31 09:12 | CL.D_ITS ---
Patient Name: NAKUL WHATLEY Study Date: 03/31/2024 Performing: Clyde Sky MD Ht: 68 inches 172.72 cm : 1950 Wt: 222.01 lbs 100.7 kg Age: 73 Gender: male BSA: 2.14 PROCEDURE(S) PERFORMED DC01-(72627)LHC/COR/LV CLINICAL PROFILE AND INDICATIONS Indications: Cardiac Arrythmia Heart Failure: None Stress/Imaging Stress/Image Study Performed: No CAD Presentations: Other: sob CONCLUSIONS Non obstructive coronary arteries Normal LV size, wall motion,and systolic function RECOMMENDATIONS Medical therapy DESCRIPTION OF PROCEDURE The patient arrived to the procedure lab. The risks and benefits of the procedure as well as a full description of our services here and current unavailability of surgical backup were fully explained to the patient and/or their significant other prior to the catheterization. The Timeout was completed, verifying the correct patient and procedure. The patient's procedural site was prepped and draped in the usual fashion. Local anesthetic was given subcutaneously to right radial region with Lidocaine 2%. Using a modified Seldinger technique, arterial access was obtained via the right radial artery, a 6Fr sheath was inserted. Left Coronary Artery selective angiography was performed in multiple views using a 5 Fr. 4.0 Bee catheter. Right Coronary Artery selective angiography was then performed in multiple views using a 5 Fr. 4.0 Bee catheter. Left Ventriculography was performed in GRAY projection using a 5 Fr. Pigtail catheter.The arterial sheath was pulled and a TR Band was applied for hemostasis CORONARY ANGIOGRAPHY DOMINANCE: Right Dominant LEFT HEART ASSESSMENT Left Ventricular Ejection Fraction: by LV Gram 60 % Normal LV wall motion Normal Left Ventricular systolic function LEFT MAIN: Angiographically normal LEFT ANTERIOR DESCENDING ARTERY: Mild luminal irregularities less than 30% CIRCUMFLEX ARTERY: Mild luminal irregularities RIGHT CORONARY ARTERY: No significant disease noted COMPLICATIONS No Complications PROCEDURE MEDICATIONS Versed 1 mg IV Fentanyl 50 mcg IV Oxygen: 2 L/min via nasal cannula Heparin given IA 03/31/2024 08:54:33 Verapamil 2.5mg, Ntg 200mcgs, 2000 units of Heparin given IA 03/31/2024 08:54:33 SUMMARY OF HEMODYNAMIC DATA Time AIR REST ECG 07:46:10 AO 136/73 (99) SA 08:55:15 LV 107/6, 13 09:00:18 LV 113/4, 14 09:00:27 Signed By Clyde Sky MD On 03/31/2024 09:12:03 Clyde Sky MD
== END 2024-03-31 11:00 | disposition home or self-care (01) ==
PROVIDERS: PCP Nurse Practitioner Family; Referring Provider Internal Medicine Cardiovascular Disease; Visit Provider Internal Medicine Cardiovascular Disease
DX: I47.29 Other ventricular tachycardia (principal); C91.11 Chronic lymphocytic leukemia of B-cell type in remission; E78.5 Hyperlipidemia, unspecified; R06.09 Other forms of dyspnea; R07.89 Other chest pain; Z79.899 Other long term (current) drug therapy
CPT/HCPCS: 93458; 99152; 99153; J7040; Q9967; C1769; C1894

== ENCOUNTER → 2024-10-17 | Outpatient (CLI) | payer MEDICARE, OTHER, SELFPAY ==
[2024-10-17 11:13] LABS: Absolute Lymphocyte Count 1.22 X10^3/uL (0.83-4.51); Absolute Neutrophil Count 4.8 X10^3/uL (2.0-7.7); Basophil# 0.02 X10^3/uL; Basophil% 0.3 % (0-1); Eosinophil# 0.04 X10^3/uL; Eosinophils% 0.6 % (0-5); Hematocrit 39.4 % (40-54); Hemoglobin 12.7 g/dL (13.0-16.5); Lymphocyte # 1.22 X10^3/ul (0.83-4.51); Lymphocyte % 18.7 % (19-41); Mean Corp Hgb Conc 32.2 g/dL (32-36); Mean Corpuscular Hgb 29.5 pg (27.0-32.0); Mean Corpuscular Volume 91.6 fL (80-94); Mean Platelet Vol. 10.2 fl (6.2-12.0); Monocyte# 0.42 X10^3/uL; Monocyte% 6.5 % (0-10); NRBC Flagged by Analyzer 0 % (0-5); Neutrophil # 4.79 X10^3/uL (2.7-7.7); Neutrophil % 73.6 % (47-70); Platelet Count 263 K/mm3 (150-450); RBC Distribution Width SD 43.1 fl (35.1-43.9); White Blood Count 6.5 K/mm3 (4.4-11.0)
[2024-10-17 12:00] LABS: ALB/GLOB Ratio 1.1 RATIO (0.9-2.4); AST(SGOT) 15 U/L (15-37); Alanine Aminotransfer ALT/SGPT 23 U/L (16-61); Albumin, Serum 3.7 g/dL (3.2-5.0); Alkaline Phosphatase 92 U/L (45-117); Anion Gap 5 (5-15); BUN 17 mg/dL (7-18); BUN/Creat Ratio 14.9 RATIO (10-20); Calcium,Total 9.3 mg/dL (8.5-10.1); Chloride 104 mmol/L (98-107); Creatinine, Serum 1.14 mg/dL (0.70-1.30); EST Glomerular Filtration Rate 67 mL/min (>60); Est Glom Filt Rate - Afr Amer 81 mL/min (>60); Globulin 3.4 g/dL (2.2-4.2); Glucose 97 mg/dL (74-106); LDH 185 U/L (87-241); Potassium 4.1 mmol/L (3.5-5.1); Protein, Total 7.1 g/dL (6.4-8.2); Sodium Level 139 mmol/L (136-145)
== END | disposition home or self-care (01) ==
LOC: LAB 10:44
PROVIDERS: PCP Nurse Practitioner Family; Referring Provider Nurse Practitioner Family; Visit Provider Nurse Practitioner Family
DX: C91.10 Chronic lymphocytic leukemia of B-cell type not having achieved remission (principal)
CPT/HCPCS: 36415; 80053; 83615; 85025

== ENCOUNTER → 2024-12-03 | Outpatient (CLI) | payer MEDICARE, OTHER, SELFPAY | END | disposition home or self-care (01) | LOC: PSN 07:16 | PROVIDERS: PCP Nurse Practitioner Family; Referring Provider Nurse Practitioner Family; Visit Provider Nurse Practitioner Family | DX: I48.0 Paroxysmal atrial fibrillation (principal) | CPT/HCPCS: 93225; 93226 ==

== ENCOUNTER → 2025-02-23 | Outpatient (CLI) | payer MEDICARE, OTHER, SELFPAY ==
--- NOTE | 2025-02-23 08:14 | MRI_ITS ---
PROCEDURE: PELVIS W/WO CONTRAST, 02/23/2025 REASON FOR EXAM: ELEVATED PSA. Reportedly, PSA was 5.7 on 12/02/2024 TECHNIQUE: Multisequence multiplanar MRI pelvis was performed with and without IV contrast. IV Contrast: 20 mL Clariscan COMPARISON: None FINDINGS: Diffusion is severely degraded by artifact related to hip arthroplasty hardware, essentially nondiagnostic in some areas. Alternative PI-RADS algorithm utilized were appropriate. Portions of the pelvis are obscured on additional sequences obtained. Variable overall mild motion limitation. Prostate size: 5.5 x 4.0 x 4.8 cm, estimated volume 54.9 mL. Per the above provided PSA, PSA density is 0.104 ng/mL. Transition zone: PI-RADS 2 findings. Peripheral Zone: Background changes of likely prostatitis (PI-RADS 2). Additional lesions as below: *Lesion 1: LEFT posterolateral peripheral zone apex, 1.1 cm (series 14 image 21-22).. *T2 score: 4. *DWI score: 3. *DCE: Positive. *Overall PI-RADS: PI-RADS 4. *Extracapsular extension:No gross extracapsular extension, however, there is capsular abutment greater than 1 cm which increases the risk of occult early/microscopic extracapsular extension. Note that this includes the region of the LEFT neurovascular bundle, which appears grossly unremarkable. *Lesion 2: LEFT posterolateral peripheral zone midgland, 1.4 cm (series 14 images 16-18).. *T2 score: 4. *DWI score: Diffusion is virtually nondiagnostic in this region. *DCE: Positive. *Overall PI-RADS: PI-RADS 4. *Extracapsular extension:No gross extracapsular extension, however, there is capsular abutment greater than 1 cm which increases the risk of occult early/microscopic extracapsular extension. Note that this includes the region of the LEFT neurovascular bundle, which appears grossly unremarkable. Neurovascular bundles: As above. Seminal vesicles: Unremarkable. Bladder: Underdistended and suboptimally evaluated, grossly unremarkable.. Lymph nodes: External iliac nodes up to 13 mm short axis on the RIGHT and 11 mm short axis on the LEFT. Bones: No destructive or frankly suspicious bony lesions definitely seen within visible portions of the pelvis. 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 Tiny fat containing LEFT inguinal hernia. MRI/Pelvis W/WO Contrast IMPRESSION: 1. Exam limited largely by artifact related to hip arthroplasty hardware. 2. 1.1 cm PI-RADS 4 lesion in the LEFT posterolateral peripheral zone apex (les ion 1). 3. 1.4 cm PI-RADS 4 lesion in the LEFT posterolateral peripheral zone midgland (lesion 2). 4. YLFVE-[id number]-LEFT external iliac lymphadenopathy by PI-RADS criteria. If prostate cancer is confirmed, early carine metastasis cannot be excluded. Close clinical follow-up is warranted. 5. No gross extracapsular extension, however, there is capsular abutment greate r than 1 cm by both lesions which increases the risk of occult early/microscopic extracapsular extension. Note that this includ es the region of the LEFT neurovascular bundle, which appears grossly unremarkable. 6. Additional description as above. Reading Location: [id number]
== END | disposition home or self-care (01) ==
LOC: OPMRI 07:46
PROVIDERS: PCP Nurse Practitioner Family; Referring Provider Urology; Visit Provider Urology
DX: R97.20 Elevated prostate specific antigen [PSA] (principal)
CPT/HCPCS: 72197; A9575; A4216

== ENCOUNTER → 2025-03-10 | Outpatient (CLI) | payer MEDICARE, OTHER, SELFPAY ==
--- NOTE | 2025-03-10 08:00 | PROSBIL_PTH ---
PATIENT: NAKUL WHATLEY LOC: SP U#:[id number] AGE/SX: 74/M ROOM: RE03/10/[address]: Dr. Alessio Pena MD : 1950 BED: DIS: 03/10/2025 SPEC #: [id number] RECD: 03/10/25 15:44 STATUS: CAMPOS RENancy #: [id number] KAMI: 03/10/25 08:[address]: Alessio Pena DEPT: SURGICAL PATHOLOGY RECD BY: Rajan Srinivasan ENTERED: 03/11/25 09:45 SP TYPE: PROST BX TEODORO DR: Kateryna Booker, RN ENDOCRINOLOGY-C Tissues: A - PROSTATE LEFT B - PROSTATE LEFT Procedures: PROSTATE BX HEADER OPERATION: Prostate biopsy PRE-OP DIAGNOSIS: Elevated PSA TISSUE SUBMITTED: A- Left apex, B- Left mid MICROSCOPIC DIAGNOSIS A. 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 B. Prostate, left mid, core biopsy: * Adenocarcinoma [place] 3+3=6, involving 2 of 2 cores and 80% of the specimen. MICROSCOPIC DESCRIPTION Slides are reviewed. GROSS DESCRIPTION Received in 2 formalin containers labeled with the patient's name and date of .? Designated as: A.? LA are 3 cardoso focally fragmented soft tissue cores, 1.0 cm to 1.7 cm in length by <0.1 cm in diameter.? Entirely submitted in 1 cassette. B.? LM are 2 cardoso soft tissue cores, 1.1 cm and 1.8 cm in length by <0.1 cm in diameter.? Entirely submitted in 1 cassette. [place] 03/11/2025 CPT:54316z7
== END | disposition home or self-care (01) ==
LOC: LABSPEC 16:08
PROVIDERS: PCP Nurse Practitioner Family; Referring Provider Urology; Visit Provider Urology
DX: C61 Malignant neoplasm of prostate (principal)
CPT/HCPCS: 88305; G0416